=== PATIENT | male | born 1970 | race Caucasian/White ===

== ENCOUNTER 2020-01-15 07:14 | Day surgery (SDC) | payer OTHER ==
[2020-01-14 11:25] VITALS: BMI 34.4
--- NOTE | 2020-01-15 08:04 | HP ---
Satellite [facility] - Chief Complaint Chief Complaint: left knee pain - Past Medical History Allergies/Adverse Reactions: Allergies Allergy/AdvReac Type Severity Reaction Status Date / Time peanut Allergy Severe RESPIRATORY Verified 01/15/20 07:42 DISTRESS, HIVES, SWELLING codeine AdvReac Intermediate Nausea Verified 01/15/20 07:42 - Current Medications Current Medications: Home Medications Medication Instructions Recorded Albuterol Sulfate Inhaler - 1 - 2 inh PO PRN PRN 01/14/20 [Ventolin HFA Inhaler -] Fluticasone Prop 0.05% Nasal 1 - 2 spray NS DAILY 01/14/20 [Flonase -] Omeprazole 80 mg PO DAILY 01/14/20 Semaglutide [Ozempic] 1 mg SQ WEEKLY 01/14/20 Acetaminophen [Tylenol 1,500 mg PO PRN PRN 01/15/20 .Extra-Strength -] Oxycodone HCl/Acetaminophen 1 tab PO Q6H #15 tablet MDD 4 01/15/20 [Percocet 5-325 mg Tablet] Satellite Physical Exam - Physical Examination General Appearance: Well Nourished, Well Developed, Alert & Oriented x3 ENT: Clear Lung: Normal air movement Extremities: Other (left knee- + swelling, + ttp, decr rom, + mcmurrays, nvi) Neurological: Intact, Alert, Oriented Satellite Impression/Plan - Impression/Plan Impression: left knee internal derangement Operative Procedure: left knee arthroscopy Date to be Performed: 01/15/20
[2020-01-15] MEDS ORDERED: LIDOCAINE 1%-EPI 1:100,000 30 ML MDV IJ ONE (08:58)
[2020-01-15] MEDS ORDERED: PROPOFOL 20 ML ONE ×2 (09:03→09:36)
[2020-01-15] MEDS ORDERED: MIDAZOLAM HCL 2 MG/2 ML SINGLE DOSE VIAL ONE (09:03)
[2020-01-15] MEDS ORDERED: DEXAMETHASONE SOD PHOSPHATE 4 MG/1 ML VIAL ONE (09:04)
[2020-01-15] MEDS ORDERED: KETOROLAC TROMETHAMINE 30 MG/1 ML VIAL ONE (09:04)
[2020-01-15] MEDS ORDERED: LIDOCAINE HCL/PF 2% SDV 5ML VIAL ONE (09:04)
[2020-01-15] MEDS ORDERED: ALBUTEROL SO4 HFA INHALER IH ONE (09:16)
[2020-01-15] MEDS ORDERED: LIDOCAINE 1%/EPI 1:100000 (50 ML MULTI DOSE VIAL) NR ONE (09:30)
[2020-01-15] MEDS ORDERED: BUPIVACAINE HCL/PF 0.5% (5 MG/ML) 30 ML VIAL IJ ONE (09:30)
--- NOTE | 2020-01-15 10:25 | OP ---
Operative Note - Note: Operative Date: 01/15/20 ([facility]) Pre-Operative Diagnosis: left knee internal derangement Operation: left knee arthroscopy with debridement chondroplasty Post-Operative Diagnosis: Same as Pre-op Surgeon: Kyle Ritchie Anesthesia: General, Local Specimens Removed: shavings Operative Report Dictated: Yes
[2020-01-15] MEDS ORDERED: ONDANSETRON 4 MG/2 ML VIAL IVPUSH PRN (11:13)
[2020-01-15] MEDS ORDERED: oxyCODONE HCL 5 MG TABLET PO PRN ×2 (11:13)
[2020-01-15] MEDS ORDERED: LACTATED RINGERS SOLUTION 1,000 ML IV SCH (11:15)
[2020-01-15 11:22] VITALS: TEMP 97.8
[2020-01-15] MEDS ORDERED: oxyCODONE HCL 5 MG TABLET PO ONE (11:30)
--- NOTE | 2020-01-15 12:59 | OP ---
DATE OF OPERATION: 01/15/2020 PREOPERATIVE DIAGNOSIS: Internal derangement, left knee. POSTOPERATIVE DIAGNOSIS: Internal derangement, left knee. PROCEDURE: Arthroscopy, left knee with chondroplasty trochlea and lateral femoral condyle. SURGICAL ATTENDING: Kyle Ritchie MD ANESTHESIA: General with LMA. CLOSURES: 4-0 nylon. COMPLICATIONS: None. CONDITION: To recovery room in stable condition. DESCRIPTION OF PROCEDURE: Patient was taken to the operating room on January 15, 2020. General anesthesia with LMA was administered by the anesthesiologist. The left lower extremity was prepped and draped in the usual sterile fashion. The medial and lateral infrapatellar portal sites were infiltrated with 1% Xylocaine with epinephrine. Both ports were then made with a 15 blade followed by a blunt trocar. The trocar was placed in the inferolateral portal and up the suprapatellar pouch. The knee was inflated with a cocktail of 10 mL 1% lidocaine, 10 mL 0.5% Marcaine, and 20 mL of arthroscopic saline. After allowing the anesthetic to sit in the knee and begin to work, the procedure was performed. The scope was visualized to be clean. The medial and lateral gutters were visualized to be clean. The undersurface of the patella was found to be intact. The trochlea itself, however, was found to have a quarter-size grade 4 lesion in the central portion. This was debrided back to smooth and stable articular cartilage using the arthroscopic shaver. With valgus stress on the knee, medial compartment was entered. Medial meniscus was visualized and probed and found to be intact. The medial femoral condyle was run and found to be intact as was the medial tibial plateau. At 90 degrees, the ACL was visualized and probed and found to be intact. In the figure-4 position, the lateral compartment was entered. Lateral meniscus was visualized and probed and found to be intact. The femoral condyle was found to have a linear area of grade 4 changes extending for about a centimeter. Any loose articular cartilage was debrided using a shaver. The rest of the lateral femoral condyle was found to be intact as was the lateral tibial plateau. The knee was irrigated with copious amounts of irrigation. The portal was closed using 4-0 nylon. Prior to closure, 20 mL of 0.5% Marcaine was infused into the knee for postoperative analgesia. A sterile pressure dressing was placed over the knee. Patient awakened from anesthesia and transferred to recovery in stable condition. No complications. Estimated blood loss negligible. KYLE RITCHIE M.D. [id number]
[2020-01-15 13:01] VITALS: BP 130/70; PULSE 80
--- NOTE | 2020-01-18 16:53 | PATH ---
Surgical Pathology Report Patient Name: [facility]. Rec. #: [id number] /Age/Gender: 1970 (Age: 49) / M Account: [id number] Location: [facility] SURGICAL Taken: 01/15/2020 Received: 01/15/2020 Reported: 01/18/2020 Physicians: Kyle Ritchie M.D. Specimen(s) Received LEFT KNEE SHAVINGS Clinical History Tear left knee Final Diagnosis KNEE SHAVINGS, LEFT, ARTHROSCOPY: FRAGMENTS OF CARTILAGE, DENSE FIBROCONNECTIVE TISSUE, ADIPOSE TISSUE, AND REACTIVE SYNOVIUM. Electronically Signed Mary Connell M.D. Gross Description Received in formalin, labeled "left knee shavings," is a 4.0 x 3.8 x 0.3 cm. aggregate of rondon-yellow soft tissue fragments. A artist's representative portion is submitted in one cassette. /01/15/2020 saudi01/15/2020
== END 2020-01-15 12:45 | disposition home or self-care (01) ==
LOC: JASU-SURG 07:14
PROVIDERS: ATTEND Orthopaedic Surgery
PROC: 0SBD4ZZ Excision of Left Knee Joint, Percutaneous Endoscopic Approach (ICD-10-PCS; principal; 2020-01-15 08:45)
DX: M23.92 Unspecified internal derangement of left knee (principal)
CPT/HCPCS: 82962; 88304-TC; 94760

== ENCOUNTER 2022-06-23 10:28 | Inpatient (IN) | payer MEDICARE, OTHER ==
[2022-06-23 10:42] VITALS: BMI 40.3
[2022-06-23] MEDS ORDERED: diazePAM CARPU-JECT 10 MG/2 ML DISP.SYRIN ONE ×4 (10:57→19:30)
[2022-06-23] MEDS ORDERED: diazePAM CARPU-JECT 10 MG/2 ML DISP.SYRIN IVPUSH ONE ×6 (11:30→23:56)
[2022-06-23] MEDS ORDERED: ACETAMINOPHEN 1000 MG/100 ML BAG IVPB ONE (11:51)
[2022-06-23] MEDS ORDERED: SODIUM CHLORIDE 0.9% 500 ML INFUS.BAG IV ONE (11:57)
[2022-06-23 11:58] LABS: MAGNESIUM 1.8 mg/dL (1.8-2.4)
[2022-06-23 12:02] LABS: PHOSPHOROUS 3.2 mg/dL (2.5-4.9)
[2022-06-23 12:13] LABS: BASO % 1.1 % (0-2.0); EOS % 2.2 % (0-4.5); HEMATOCRIT 44.7 % (35.4-49); HEMOGLOBIN 15.7 GM/dL (11.7-16.9); LYMPH % 22.5 % (8-40); MCH 33.5 pg (25.7-33.7); MCHC 35.1 g/dl (32.0-35.9); MEAN CELL VOLUME 95.6 fl (80-96); MEAN PLT VOLUME 8.7 fl (7.5-11.1); MONO % 10.8 % (3.8-10.2); NEUT % 63.4 % (42.8-82.8); PLATELET COUNT 203 10^3/uL (134-434); RBC 4.68 M/mm3 (4.00-5.60); RDW 14.4 % (11.9-15.9); WHITE BLOOD COUNT 6.6 K/mm3 (4.0-10.0)
[2022-06-23 12:23] LABS: LACTIC ACID 2.4 mmol/L (0.4-2.0)
[2022-06-23 12:27] LABS: CALCIUM 8.8 mg/dL (8.5-10.1)
[2022-06-23 12:28] LABS: ALBUMIN 3.4 g/dl (3.4-5.0); BLOOD UREA NITROGEN 13.4 mg/dL (7-18)
[2022-06-23 12:31] LABS: CREATININE 1.2 mg/dL (0.55-1.3)
[2022-06-23 12:32] LABS: TOT PROT 7.2 g/dl (6.4-8.2)
[2022-06-23 12:33] LABS: BILIRUBIN,TOTAL 0.4 mg/dL (0.2-1)
[2022-06-23] MEDS ORDERED: ACETAMINOPHEN INJECTION 100 ML IVPB ONE (12:48)
[2022-06-23] MEDS ORDERED: LORazepam 2 MG/ML SDV VIAL IVPUSH ONE ×2 (13:01→21:33)
[2022-06-23] MEDS ORDERED: THIAMINE HCL 200 MG/2 ML VIAL IVPB ONE (16:37)
[2022-06-23] MEDS ORDERED: THIAMINE HCL 200 MG/2 ML VIAL ONE (16:41)
[2022-06-23] MEDS ORDERED: FUROSEMIDE 40 MG/4 ML INJECTABLE VIAL IVPUSH ONE (17:41)
[2022-06-23 18:35] LABS: PH,URINE 7.5 (5.0-8.0); URINE APPEARANCE CLEAR; URINE BILIRUBIN NEGATIVE (NEGATIVE); URINE COLOR YELLOW; URINE GLUCOSE (UA) NEGATIVE (NEGATIVE); URINE KETONE NEGATIVE (NEGATIVE); URINE LEUK ESTERASE NEGATIVE (NEGATIVE); URINE NITRITE NEGATIVE (NEGATIVE); URINE PROTEIN NEGATIVE (NEGATIVE)
[2022-06-23] MEDS ORDERED: chlordiazePOXIDE HCL 25 MG CAPSULE PO PRN (23:05)
[2022-06-23] MEDS ORDERED: FOLIC ACID INJECTION - 1 MG, THIAMINE HCL 100 MG, MULTIVIT INJECTION ADULT 10 ML in SOD... IVPB ONE (23:07)
[2022-06-24] MEDS: chlordiazePOXIDE HCL 25 MG CAPSULE PO SCH ×5 (00:11→22:01)
[2022-06-24] MEDS: MELATONIN 5 MG TABLETS PO SCH ×2 (00:25→22:01)
[2022-06-24] MEDS ORDERED: ALBUTEROL SO4 HFA INHALER IH PRN (02:09)
[2022-06-24] MEDS: INSULIN SLIDING SCALE (NOVOLOG) 1 VIAL SQ SCH ×4 (06:56→22:11)
[2022-06-24 07:36] LABS: COCAINE, UR NEGATIVE (NEGATIVE); OPIATES, URI NEGATIVE (NEGATIVE)
[2022-06-24 07:37] LABS: METHADONE, UR NEGATIVE (NEGATIVE); PHENCYCLIDINE,URINE NEGATIVE (NEGATIVE); URINE BARBITURATES NEGATIVE (NEGATIVE)
[2022-06-24 07:38] LABS: URINE AMPHETAMINES NEGATIVE (NEGATIVE)
[2022-06-24 07:44] LABS: URINE BENZODIAZEPINES POSITIVE (NEGATIVE)
[2022-06-24 07:51] LABS: BASO % 0.7 % (0-2.0); EOS % 6.3 % (0-4.5); HEMATOCRIT 42.3 % (35.4-49); HEMOGLOBIN 14.7 GM/dL (11.7-16.9); LYMPH % 23.2 % (8-40); MCH 33.5 pg (25.7-33.7); MCHC 34.8 g/dl (32.0-35.9); MEAN CELL VOLUME 96.2 fl (80-96); MEAN PLT VOLUME 8.1 fl (7.5-11.1); MONO % 9.2 % (3.8-10.2); NEUT % 60.6 % (42.8-82.8); PLATELET COUNT 165 10^3/uL (134-434); RDW 14.3 % (11.9-15.9); WHITE BLOOD COUNT 7.1 K/mm3 (4.0-10.0)
[2022-06-24 08:22] LABS: CALCIUM 8.4 mg/dL (8.5-10.1)
[2022-06-24 08:25] LABS: BLOOD UREA NITROGEN 14.9 mg/dL (7-18); CREATININE 1.2 mg/dL (0.55-1.3)
[2022-06-24 08:27] LABS: TOT PROT 6.2 g/dl (6.4-8.2)
[2022-06-24 08:28] LABS: ALBUMIN 3.1 g/dl (3.4-5.0); PHOSPHOROUS 4.2 mg/dL (2.5-4.9)
[2022-06-24 08:30] LABS: BILIRUBIN,TOTAL 0.6 mg/dL (0.2-1)
[2022-06-24] MEDS ORDERED: ESCITALOPRAM OXALATE 10 MG TABLET ONE (09:42)
[2022-06-24] MEDS: FLUTICASONE/UMECLIDIN/VILANTER(200-62.5-25 TRELEGY ELLIPTA) INAHLER IH SCH (10:00)
[2022-06-24] MEDS ORDERED: THIAMINE HCL 200 MG/2 ML VIAL IVPB SCH (10:00)
[2022-06-24] MEDS ORDERED: ENOXAPARIN NA (PORCINE) 40 MG/0.4 ML DISP.SYRIN SQ SCH ×2 (10:00)
[2022-06-24] MEDS: LIDOCAINE 5% TOPICAL PATCH TP SCH (10:19)
[2022-06-24] MEDS: FAMOTIDINE 40 MG TABLET PO SCH (10:20)
[2022-06-24] MEDS: ESCITALOPRAM OXALATE 20 MG TABLET PO SCH (10:20)
[2022-06-24] MEDS: THIAMINE HCL 100 MG TABLET (FP) PO SCH (10:20)
[2022-06-24] MEDS: FOLIC ACID 1 MG TABLET (FP) PO SCH (10:20)
[2022-06-24] MEDS ORDERED: LORazepam 2 MG/ML SDV VIAL IVPUSH ONE (10:54)
[2022-06-24] MEDS ORDERED: LORazepam 2 MG/ML SDV VIAL IVPUSH PRN (12:31)
[2022-06-24] MEDS: LIDOCAINE PATCH REMOVAL MC SCH (22:02)
[2022-06-25] MEDS ORDERED: chlordiazePOXIDE HCL 25 MG CAPSULE PO SCH ×2 (05:00→17:00)
[2022-06-25] MEDS: chlordiazePOXIDE HCL 25 MG CAPSULE PO SCH ×4 (05:09→22:12)
[2022-06-25] MEDS: INSULIN SLIDING SCALE (NOVOLOG) 1 VIAL SQ SCH ×4 (06:09→21:14)
[2022-06-25] MEDS ORDERED: ESCITALOPRAM OXALATE 10 MG TABLET ONE (09:19)
[2022-06-25 10:06] LABS: BASO % 0.6 % (0-2.0); EOS % 6.4 % (0-4.5); HEMATOCRIT 40.7 % (35.4-49); HEMOGLOBIN 14.1 GM/dL (11.7-16.9); LYMPH % 20.6 % (8-40); MCHC 34.7 g/dl (32.0-35.9); MEAN CELL VOLUME 95.1 fl (80-96); MEAN PLT VOLUME 8.7 fl (7.5-11.1); MONO % 7.6 % (3.8-10.2); NEUT % 64.8 % (42.8-82.8); PLATELET COUNT 160 10^3/uL (134-434); RBC 4.28 M/mm3 (4.00-5.60); RDW 13.7 % (11.9-15.9); WHITE BLOOD COUNT 7.3 K/mm3 (4.0-10.0)
[2022-06-25] MEDS: LIDOCAINE 5% TOPICAL PATCH TP SCH (10:29)
[2022-06-25 10:30] LABS: CALCIUM 8.8 mg/dL (8.5-10.1)
[2022-06-25] MEDS: FOLIC ACID 1 MG TABLET (FP) PO SCH (10:30)
[2022-06-25] MEDS: THIAMINE HCL 100 MG TABLET (FP) PO SCH (10:30)
[2022-06-25] MEDS: ESCITALOPRAM OXALATE 20 MG TABLET PO SCH (10:30)
[2022-06-25 10:31] LABS: BLOOD UREA NITROGEN 8.7 mg/dL (7-18)
[2022-06-25] MEDS: FLUTICASONE/UMECLIDIN/VILANTER(200-62.5-25 TRELEGY ELLIPTA) INAHLER IH SCH (10:31)
[2022-06-25] MEDS: FAMOTIDINE 40 MG TABLET PO SCH (10:31)
[2022-06-25 10:34] LABS: CREATININE 0.9 mg/dL (0.55-1.3)
[2022-06-25 10:36] LABS: TOT PROT 6.2 g/dl (6.4-8.2)
[2022-06-25 10:54] LABS: BILIRUBIN,TOTAL 0.8 mg/dL (0.2-1)
[2022-06-25] MEDS ORDERED: chlordiazePOXIDE HCL 25 MG CAPSULE PO PRN (12:36)
[2022-06-25] MEDS ORDERED: levETIRAcetam 500 MG TABLET (FP) PO ONE (13:41)
[2022-06-25] MEDS: LORazepam 2 MG/ML SDV VIAL IVPUSH PRN (13:49)
[2022-06-25] MEDS: chlordiazePOXIDE HCL 25 MG CAPSULE PO PRN (15:04)
[2022-06-25] MEDS: ACETAMINOPHEN 325 MG TABLET (FP) PO PRN (17:34)
[2022-06-25] MEDS ORDERED: chlordiazePOXIDE 5 MG CAPSULE PO SCH (18:00)
[2022-06-25] MEDS ORDERED: KETOROLAC TROMETHAMINE 15 MG/ML VIAL IVPUSH ONE (20:24)
[2022-06-25] MEDS: MELATONIN 5 MG TABLETS PO SCH (21:13)
[2022-06-25] MEDS: levETIRAcetam 500 MG TABLET (FP) PO SCH (21:13)
[2022-06-25] MEDS: LIDOCAINE PATCH REMOVAL MC SCH (21:16)
[2022-06-25] MEDS: THIAMINE HCL 200 MG/2 ML VIAL IVPB SCH (21:16)
[2022-06-26] MEDS ORDERED: chlordiazePOXIDE HCL 10 MG CAPSULE PO PRN
[2022-06-26] MEDS: THIAMINE HCL 200 MG/2 ML VIAL IVPB SCH ×4 (01:25→21:24)
[2022-06-26] MEDS ORDERED: chlordiazePOXIDE HCL 10 MG CAPSULE PO SCH (05:00)
[2022-06-26] MEDS ORDERED: chlordiazePOXIDE HCL 25 MG CAPSULE PO SCH ×3 (05:00→17:00)
[2022-06-26] MEDS: chlordiazePOXIDE HCL 25 MG CAPSULE PO SCH ×2 (05:34→11:17)
[2022-06-26] MEDS: INSULIN SLIDING SCALE (NOVOLOG) 1 VIAL SQ SCH ×4 (06:26→21:24)
[2022-06-26] MEDS: LORazepam 2 MG/ML SDV VIAL IVPUSH PRN (09:23)
[2022-06-26] MEDS ORDERED: ESCITALOPRAM OXALATE 10 MG TABLET ONE (09:31)
[2022-06-26] MEDS: LIDOCAINE 5% TOPICAL PATCH TP SCH (10:00)
[2022-06-26] MEDS: FAMOTIDINE 40 MG TABLET PO SCH (10:01)
[2022-06-26] MEDS: ESCITALOPRAM OXALATE 20 MG TABLET PO SCH (10:01)
[2022-06-26] MEDS: levETIRAcetam 500 MG TABLET (FP) PO SCH ×2 (10:03→21:24)
[2022-06-26] MEDS: FOLIC ACID 1 MG TABLET (FP) PO SCH (10:06)
[2022-06-26 10:12] LABS: HEMATOCRIT 42.2 % (35.4-49); HEMOGLOBIN 14.5 GM/dL (11.7-16.9); MCH 33.1 pg (25.7-33.7); MCHC 34.3 g/dl (32.0-35.9); MEAN CELL VOLUME 96.4 fl (80-96); MEAN PLT VOLUME 8.9 fl (7.5-11.1); PLATELET COUNT 171 10^3/uL (134-434); RBC 4.37 M/mm3 (4.00-5.60); RDW 13.7 % (11.9-15.9); WHITE BLOOD COUNT 7.5 K/mm3 (4.0-10.0)
[2022-06-26] MEDS: FLUTICASONE/UMECLIDIN/VILANTER(200-62.5-25 TRELEGY ELLIPTA) INAHLER IH SCH (10:35)
[2022-06-26 10:41] LABS: BLOOD UREA NITROGEN 12.8 mg/dL (7-18); CALCIUM 8.9 mg/dL (8.5-10.1)
[2022-06-26 10:45] LABS: BILIRUBIN,TOTAL 0.9 mg/dL (0.2-1); CREATININE 1.1 mg/dL (0.55-1.3)
[2022-06-26 10:47] LABS: TOT PROT 6.4 g/dl (6.4-8.2)
[2022-06-26] MEDS ORDERED: levETIRAcetam 500 MG/5 ML INJECTION VIAL IVPB ONE (11:30)
[2022-06-26 14:23] LABS: MAGNESIUM 2.1 mg/dL (1.8-2.4)
[2022-06-26 14:25] LABS: PHOSPHOROUS 2.4 mg/dL (2.5-4.9)
[2022-06-26] MEDS: chlordiazePOXIDE HCL 25 MG CAPSULE PO PRN (15:43)
[2022-06-26] MEDS ORDERED: NAPH,MB-DB/K PH,MBDB POWDER PACKET PO ONE (16:13)
[2022-06-26] MEDS: CHLORDIAZEPOXIDE PO SCH ×2 (17:35→22:31)
[2022-06-26] MEDS: ACETAMINOPHEN 325 MG TABLET (FP) PO PRN (17:55)
[2022-06-26] MEDS: LIDOCAINE PATCH REMOVAL MC SCH (21:24)
[2022-06-26] MEDS: MELATONIN 5 MG TABLETS PO SCH (21:24)
[2022-06-26] MEDS: QUEtiapine FUMARATE 25 MG TABLET PO SCH (21:25)
[2022-06-27] MEDS ORDERED: chlordiazePOXIDE HCL 10 MG CAPSULE PO PRN
[2022-06-27] MEDS: THIAMINE HCL 200 MG/2 ML VIAL IVPB SCH ×4 (02:10→22:53)
[2022-06-27] MEDS ORDERED: chlordiazePOXIDE HCL 25 MG CAPSULE PO SCH ×3 (05:00→17:00)
[2022-06-27] MEDS ORDERED: chlordiazePOXIDE HCL 10 MG CAPSULE PO SCH ×2 (05:00)
[2022-06-27] MEDS ORDERED: chlordiazePOXIDE HCL 25 MG CAPSULE ONE (05:51)
[2022-06-27] MEDS ORDERED: chlordiazePOXIDE 5 MG CAPSULE ONE (05:51)
[2022-06-27] MEDS: CHLORDIAZEPOXIDE PO SCH ×4 (06:10→22:54)
[2022-06-27] MEDS: INSULIN SLIDING SCALE (NOVOLOG) 1 VIAL SQ SCH ×4 (06:22→21:26)
[2022-06-27 08:23] LABS: EOS % 6.6 % (0-4.5); HEMATOCRIT 42.3 % (35.4-49); HEMOGLOBIN 14.5 GM/dL (11.7-16.9); LYMPH % 23.3 % (8-40); MCH 33.3 pg (25.7-33.7); MCHC 34.2 g/dl (32.0-35.9); MEAN CELL VOLUME 97.3 fl (80-96); MEAN PLT VOLUME 8.9 fl (7.5-11.1); MONO % 7.6 % (3.8-10.2); NEUT % 61.5 % (42.8-82.8); PLATELET COUNT 166 10^3/uL (134-434); RBC 4.35 M/mm3 (4.00-5.60)
[2022-06-27 08:55] LABS: BLOOD UREA NITROGEN 10.6 mg/dL (7-18); CALCIUM 8.8 mg/dL (8.5-10.1)
[2022-06-27 08:59] LABS: BILIRUBIN,TOTAL 0.4 mg/dL (0.2-1); TOT PROT 6.4 g/dl (6.4-8.2)
[2022-06-27] MEDS ORDERED: ESCITALOPRAM OXALATE 10 MG TABLET ONE (09:19)
[2022-06-27] MEDS: LIDOCAINE 5% TOPICAL PATCH TP SCH (09:57)
[2022-06-27] MEDS: FAMOTIDINE 40 MG TABLET PO SCH (09:58)
[2022-06-27] MEDS: levETIRAcetam 500 MG TABLET (FP) PO SCH ×2 (09:58→21:30)
[2022-06-27] MEDS: ESCITALOPRAM OXALATE 20 MG TABLET PO SCH (09:58)
[2022-06-27] MEDS: FOLIC ACID 1 MG TABLET (FP) PO SCH (09:58)
[2022-06-27] MEDS: FLUTICASONE/UMECLIDIN/VILANTER(200-62.5-25 TRELEGY ELLIPTA) INAHLER IH SCH (10:22)
[2022-06-27 11:19] LABS: PHOSPHOROUS 3.9 mg/dL (2.5-4.9)
[2022-06-27] MEDS ORDERED: MAG HYDROX/AL HYDROX/SIMETH 30 ML UNIT-DOSE CUP PO ONE (20:31)
[2022-06-27] MEDS: QUEtiapine FUMARATE 25 MG TABLET PO SCH (21:30)
[2022-06-27] MEDS ORDERED: ATORVASTATIN CA 20 MG TABLET (FP) PO SCH (22:00)
[2022-06-27] MEDS: LIDOCAINE PATCH REMOVAL MC SCH (22:53)
[2022-06-27] MEDS: MELATONIN 5 MG TABLETS PO SCH (22:56)
[2022-06-27] MEDS ORDERED: IBUPROFEN 600 MG TABLET (FP) PO PRN (23:10)
[2022-06-28] MEDS: THIAMINE HCL 200 MG/2 ML VIAL IVPB SCH ×2 (02:58→10:24)
[2022-06-28] MEDS ORDERED: chlordiazePOXIDE HCL 10 MG CAPSULE PO ONE (05:00)
[2022-06-28] MEDS ORDERED: chlordiazePOXIDE HCL 10 MG CAPSULE PO SCH ×2 (05:00)
[2022-06-28] MEDS: CHLORDIAZEPOXIDE PO SCH ×3 (06:41→22:33)
[2022-06-28] MEDS: INSULIN SLIDING SCALE (NOVOLOG) 1 VIAL SQ SCH ×2 (06:45→11:53)
[2022-06-28 08:38] LABS: HEMATOCRIT 42.4 % (35.4-49); HEMOGLOBIN 14.9 GM/dL (11.7-16.9); MCH 33.8 pg (25.7-33.7); MCHC 35.2 g/dl (32.0-35.9); MEAN PLT VOLUME 8.3 fl (7.5-11.1); PLATELET COUNT 170 10^3/uL (134-434); RBC 4.41 M/mm3 (4.00-5.60); RDW 14.2 % (11.9-15.9); WHITE BLOOD COUNT 7.3 K/mm3 (4.0-10.0)
[2022-06-28 09:21] LABS: BILIRUBIN,TOTAL 0.2 mg/dL (0.2-1); TOT PROT 6.7 g/dl (6.4-8.2)
[2022-06-28 09:23] LABS: BLOOD UREA NITROGEN 11.8 mg/dL (7-18); PHOSPHOROUS 3.2 mg/dL (2.5-4.9)
[2022-06-28 09:25] LABS: ALBUMIN 3.1 g/dl (3.4-5.0); MAGNESIUM 2.4 mg/dL (1.8-2.4)
[2022-06-28 09:31] LABS: CALCIUM 8.6 mg/dL (8.5-10.1)
[2022-06-28] MEDS ORDERED: ESCITALOPRAM OXALATE 10 MG TABLET ONE (09:57)
[2022-06-28] MEDS: FAMOTIDINE 40 MG TABLET PO SCH (10:02)
[2022-06-28] MEDS: ESCITALOPRAM OXALATE 20 MG TABLET PO SCH (10:02)
[2022-06-28] MEDS: levETIRAcetam 500 MG TABLET (FP) PO SCH (10:02)
[2022-06-28] MEDS: FOLIC ACID 1 MG TABLET (FP) PO SCH (10:03)
[2022-06-28] MEDS: FLUTICASONE/UMECLIDIN/VILANTER(200-62.5-25 TRELEGY ELLIPTA) INAHLER IH SCH (10:24)
[2022-06-28] MEDS: LIDOCAINE 5% TOPICAL PATCH TP SCH (10:24)
[2022-06-28] MEDS ORDERED: LORazepam 2 MG/ML SDV VIAL IVPUSH ONE ×2 (14:58→15:01)
[2022-06-28] MEDS ORDERED: diazePAM CARPU-JECT 10 MG/2 ML DISP.SYRIN IVPUSH PRN (15:09)
[2022-06-28] MEDS ORDERED: levETIRAcetam 500 MG/5 ML INJECTION VIAL IVPB ONE (15:13)
[2022-06-28] MEDS ORDERED: chlordiazePOXIDE HCL 10 MG CAPSULE PO PRN ×3 (15:30→17:01)
[2022-06-28] MEDS ORDERED: CHLORDIAZEPOXIDE PO SCH (17:00)
[2022-06-28] MEDS ORDERED: chlordiazePOXIDE HCL 25 MG CAPSULE PO SCH (17:00)
[2022-06-28] MEDS ORDERED: IBUPROFEN 600 MG TABLET (FP) PO PRN (17:01)
[2022-06-28] MEDS ORDERED: ALBUTEROL SO4 HFA INHALER IH PRN (17:01)
[2022-06-28] MEDS ORDERED: ACETAMINOPHEN 325 MG TABLET (FP) PO PRN (17:01)
[2022-06-28] MEDS ORDERED: NAPROXEN 250 MG TABLET PO ONE (18:28)
[2022-06-28] MEDS ORDERED: ACETAMINOPHEN 500 MG TABLET (FP) PO PRN (18:55)
[2022-06-28] MEDS ORDERED: THIAMINE HCL 200 MG/2 ML VIAL IVPB SCH (20:00)
[2022-06-28 20:08] LABS: INR 0.96 (0.83-1.09)
[2022-06-28 20:11] LABS: ACTIVATED PTT 27.9 SECONDS (25.2-36.5)
[2022-06-28 20:18] LABS: ANISOCYTOSIS 1+; MACROCYTOSIS 1+
[2022-06-28 20:33] LABS: LDH 169 U/L (87-246)
[2022-06-28] MEDS: morphine SULFATE 4 MG/ML VIAL IVPUSH PRN (20:51)
[2022-06-28] MEDS: MUPIROCIN 2% TOPICAL OINTMENT FOR DECOLONIZATION NS SCH (21:56)
[2022-06-28] MEDS: DOCUSATE SODIUM 100 MG CAPSULE (FP) PO SCH (21:56)
[2022-06-28] MEDS: LIDOCAINE PATCH REMOVAL MC SCH ×2 (21:57)
[2022-06-28] MEDS: levETIRAcetam 500 MG/5 ML INJECTION VIAL IVPB SCH (21:57)
[2022-06-28] MEDS: CHLORHEXIDINE GLUCONATE 4% CLEANSER FOR DECOLONIZATION TP SCH (21:57)
[2022-06-28] MEDS: ATORVASTATIN CA 20 MG TABLET (FP) PO SCH (21:58)
[2022-06-28] MEDS: QUEtiapine FUMARATE 25 MG TABLET PO SCH (21:59)
[2022-06-28] MEDS ORDERED: POLYETHYLENE GLYCOL (HEALTHYLAX) 3350 17 GM PACKET PO ONE (22:00)
[2022-06-28] MEDS ORDERED: levETIRAcetam 500 MG/5 ML INJECTION VIAL IVPB SCH (22:00)
[2022-06-28] MEDS: MELATONIN 5 MG TABLETS PO SCH (22:04)
[2022-06-29] MEDS ORDERED: chlordiazePOXIDE HCL 10 MG CAPSULE PO SCH ×2 (05:00→17:00)
[2022-06-29] MEDS ORDERED: chlordiazePOXIDE HCL 10 MG CAPSULE PO ONE (05:00)
[2022-06-29] MEDS: CHLORDIAZEPOXIDE PO SCH ×2 (05:08→11:00)
[2022-06-29] MEDS: THIAMINE HCL 200 MG/2 ML VIAL IVPB SCH (08:00)
[2022-06-29] MEDS: chlordiazePOXIDE HCL 25 MG CAPSULE PO SCH (08:05)
[2022-06-29] MEDS: PATIENT'S OWN MEDICATION (NON-FORMULARY) (Sildenafil Citrate [Sildenafil Citrate] 20 MG Ta PO SCH (08:06)
[2022-06-29] MEDS: ESCITALOPRAM OXALATE 20 MG TABLET PO SCH (10:09)
[2022-06-29] MEDS: MUPIROCIN 2% TOPICAL OINTMENT FOR DECOLONIZATION NS SCH ×2 (10:09→21:25)
[2022-06-29] MEDS: FAMOTIDINE 20 MG TABLET PO SCH (10:09)
[2022-06-29] MEDS: FOLIC ACID 1 MG TABLET (FP) PO SCH (10:10)
[2022-06-29] MEDS: FLUTICASONE/UMECLIDIN/VILANTER(200-62.5-25 TRELEGY ELLIPTA) INAHLER IH SCH (10:11)
[2022-06-29] MEDS: LIDOCAINE 5% TOPICAL PATCH TP SCH (10:11)
[2022-06-29] MEDS: levETIRAcetam 500 MG/5 ML INJECTION VIAL IVPB SCH ×2 (10:11→21:25)
[2022-06-29 13:29] LABS: BASO % 0.7 % (0-2.0); EOS % 6.9 % (0-4.5); HEMATOCRIT 42.6 % (35.4-49); HEMOGLOBIN 14.7 GM/dL (11.7-16.9); LYMPH % 17.2 % (8-40); MCHC 34.6 g/dl (32.0-35.9); MEAN CELL VOLUME 95.4 fl (80-96); MEAN PLT VOLUME 8.5 fl (7.5-11.1); MONO % 10.1 % (3.8-10.2); NEUT % 65.1 % (42.8-82.8); PLATELET COUNT 189 10^3/uL (134-434); RBC 4.46 M/mm3 (4.00-5.60); WHITE BLOOD COUNT 7.6 K/mm3 (4.0-10.0)
[2022-06-29 13:51] LABS: CALCIUM 8.6 mg/dL (8.5-10.1)
[2022-06-29 13:52] LABS: BLOOD UREA NITROGEN 9.7 mg/dL (7-18); MAGNESIUM 2.2 mg/dL (1.8-2.4)
[2022-06-29 13:55] LABS: CREATININE 1.1 mg/dL (0.55-1.3); PHOSPHOROUS 3.4 mg/dL (2.5-4.9)
[2022-06-29 13:56] LABS: BILIRUBIN,TOTAL 0.4 mg/dL (0.2-1); TOT PROT 6.5 g/dl (6.4-8.2)
[2022-06-29] MEDS: chlordiazePOXIDE HCL 10 MG CAPSULE PO SCH ×2 (19:43→22:50)
[2022-06-29] MEDS: NICOTINE 21 MG/24 HOURS TOPICAL PATCH TD SCH (20:44)
[2022-06-29] MEDS: QUEtiapine FUMARATE 25 MG TABLET PO SCH (21:24)
[2022-06-29] MEDS: MELATONIN 5 MG TABLETS PO SCH (21:24)
[2022-06-29] MEDS: DOCUSATE SODIUM 100 MG CAPSULE (FP) PO SCH (21:24)
[2022-06-29] MEDS: LIDOCAINE PATCH REMOVAL MC SCH ×2 (21:25)
[2022-06-29] MEDS: ATORVASTATIN CA 20 MG TABLET (FP) PO SCH (21:25)
[2022-06-29] MEDS: CHLORHEXIDINE GLUCONATE 4% CLEANSER FOR DECOLONIZATION TP SCH (21:25)
[2022-06-29] MEDS: INSULIN (NOVOLOG) ASPART 100 UNITS/ML 10ML VIAL SQ SCH (21:28)
[2022-06-29] MEDS: morphine SULFATE 4 MG/ML VIAL IVPUSH PRN (21:35)
[2022-06-30] MEDS ORDERED: chlordiazePOXIDE HCL 10 MG CAPSULE PO ONE (05:00)
[2022-06-30] MEDS: chlordiazePOXIDE HCL 10 MG CAPSULE PO SCH ×2 (05:21→11:00)
[2022-06-30] MEDS: INSULIN (NOVOLOG) ASPART 100 UNITS/ML 10ML VIAL SQ SCH ×4 (06:27→22:01)
[2022-06-30 08:02] LABS: BASO % 0.6 % (0-2.0); EOS % 5.5 % (0-4.5); HEMATOCRIT 42.6 % (35.4-49); HEMOGLOBIN 14.7 GM/dL (11.7-16.9); LYMPH % 24.8 % (8-40); MCH 33.2 pg (25.7-33.7); MCHC 34.4 g/dl (32.0-35.9); MEAN CELL VOLUME 96.4 fl (80-96); MEAN PLT VOLUME 8.5 fl (7.5-11.1); MONO % 11.5 % (3.8-10.2); NEUT % 57.6 % (42.8-82.8); PLATELET COUNT 202 10^3/uL (134-434); RBC 4.43 M/mm3 (4.00-5.60); WHITE BLOOD COUNT 7.2 K/mm3 (4.0-10.0)
[2022-06-30 08:17] LABS: CALCIUM 8.9 mg/dL (8.5-10.1)
[2022-06-30 08:18] LABS: ALBUMIN 3.1 g/dl (3.4-5.0); BLOOD UREA NITROGEN 11.7 mg/dL (7-18); MAGNESIUM 2.2 mg/dL (1.8-2.4)
[2022-06-30 08:21] LABS: CREATININE 1.2 mg/dL (0.55-1.3); PHOSPHOROUS 4.4 mg/dL (2.5-4.9)
[2022-06-30 08:22] LABS: BILIRUBIN,TOTAL 0.3 mg/dL (0.2-1); TOT PROT 6.8 g/dl (6.4-8.2)
[2022-06-30] MEDS: MUPIROCIN 2% TOPICAL OINTMENT FOR DECOLONIZATION NS SCH ×2 (10:58→21:58)
[2022-06-30] MEDS: FOLIC ACID 1 MG TABLET (FP) PO SCH (10:58)
[2022-06-30] MEDS: levETIRAcetam 500 MG/5 ML INJECTION VIAL IVPB SCH (10:58)
[2022-06-30] MEDS: ESCITALOPRAM OXALATE 20 MG TABLET PO SCH (10:58)
[2022-06-30] MEDS: LIDOCAINE 5% TOPICAL PATCH TP SCH (10:58)
[2022-06-30] MEDS: FLUTICASONE/UMECLIDIN/VILANTER(200-62.5-25 TRELEGY ELLIPTA) INAHLER IH SCH (10:59)
[2022-06-30] MEDS: NICOTINE 21 MG/24 HOURS TOPICAL PATCH TD SCH (10:59)
[2022-06-30] MEDS: FAMOTIDINE 20 MG TABLET PO SCH (10:59)
[2022-06-30] MEDS: morphine SULFATE 4 MG/ML VIAL IVPUSH PRN ×2 (13:36→22:05)
[2022-06-30] MEDS: CHLORHEXIDINE GLUCONATE 4% CLEANSER FOR DECOLONIZATION TP SCH (21:58)
[2022-06-30] MEDS: LIDOCAINE PATCH REMOVAL MC SCH ×2 (21:58)
[2022-06-30] MEDS: DOCUSATE SODIUM 100 MG CAPSULE (FP) PO SCH (21:58)
[2022-06-30] MEDS: MELATONIN 5 MG TABLETS PO SCH (21:58)
[2022-06-30] MEDS: ATORVASTATIN CA 20 MG TABLET (FP) PO SCH (21:58)
[2022-06-30] MEDS: levETIRAcetam 500 MG TABLET (FP) PO SCH (21:58)
[2022-06-30] MEDS: QUEtiapine FUMARATE 25 MG TABLET PO SCH (21:58)
[2022-06-30] MEDS ORDERED: morphine SULFATE 4 MG/ML VIAL IVPUSH PRN (23:18)
[2022-06-30] MEDS ORDERED: LIDOCAINE PATCH REMOVAL MC SCH (23:18)
[2022-06-30] MEDS ORDERED: ACETAMINOPHEN 500 MG TABLET (FP) PO PRN (23:18)
[2022-06-30] MEDS ORDERED: diazePAM CARPU-JECT 10 MG/2 ML DISP.SYRIN IVPUSH PRN (23:18)
[2022-06-30] MEDS ORDERED: ALBUTEROL SO4 HFA INHALER IH PRN (23:18)
[2022-06-30 23:19] VITALS: RESP 18
[2022-07-01] MEDS: INSULIN (NOVOLOG) ASPART 100 UNITS/ML 10ML VIAL SQ SCH ×3 (06:02→16:30)
[2022-07-01] MEDS ORDERED: FLUTICASONE/UMECLIDIN/VILANTER(200-62.5-25 TRELEGY ELLIPTA) INAHLER IH SCH (10:00)
[2022-07-01] MEDS ORDERED: FOLIC ACID 1 MG TABLET (FP) PO SCH (10:00)
[2022-07-01] MEDS ORDERED: NICOTINE 21 MG/24 HOURS TOPICAL PATCH TD SCH (10:00)
[2022-07-01] MEDS ORDERED: MUPIROCIN 2% TOPICAL OINTMENT FOR DECOLONIZATION NS SCH (10:00)
[2022-07-01] MEDS ORDERED: ESCITALOPRAM OXALATE 20 MG TABLET PO SCH (10:00)
[2022-07-01] MEDS ORDERED: LIDOCAINE 5% TOPICAL PATCH TP SCH (10:00)
[2022-07-01] MEDS ORDERED: FAMOTIDINE 20 MG TABLET PO SCH (10:00)
[2022-07-01 11:20] LABS: EOS % 8.7 % (0-4.5); HEMOGLOBIN 13.9 GM/dL (11.7-16.9); LYMPH % 21.6 % (8-40); MCH 33.1 pg (25.7-33.7); MEAN CELL VOLUME 97.2 fl (80-96); MEAN PLT VOLUME 8.4 fl (7.5-11.1); MONO % 12.2 % (3.8-10.2); NEUT % 56.5 % (42.8-82.8); PLATELET COUNT 209 10^3/uL (134-434); RBC 4.22 M/mm3 (4.00-5.60); RDW 14.1 % (11.9-15.9); WHITE BLOOD COUNT 6.4 K/mm3 (4.0-10.0)
[2022-07-01] MEDS: levETIRAcetam 500 MG TABLET (FP) PO SCH (11:28)
[2022-07-01 11:39] LABS: CALCIUM 8.5 mg/dL (8.5-10.1)
[2022-07-01 11:40] LABS: ALBUMIN 2.8 g/dl (3.4-5.0); BLOOD UREA NITROGEN 10.5 mg/dL (7-18); MAGNESIUM 2.2 mg/dL (1.8-2.4)
[2022-07-01 11:43] LABS: CREATININE 1.1 mg/dL (0.55-1.3); PHOSPHOROUS 3.8 mg/dL (2.5-4.9)
[2022-07-01 11:44] LABS: BILIRUBIN,TOTAL 0.3 mg/dL (0.2-1); TOT PROT 6.2 g/dl (6.4-8.2)
[2022-07-01 14:20] VITALS: BP 121/76; PULSE 74; TEMP 97.8
[2022-07-01] MEDS ORDERED: CHLORHEXIDINE GLUCONATE 4% CLEANSER FOR DECOLONIZATION TP SCH (22:00)
[2022-07-01] MEDS ORDERED: DOCUSATE SODIUM 100 MG CAPSULE (FP) PO SCH (22:00)
[2022-07-01] MEDS ORDERED: QUEtiapine FUMARATE 25 MG TABLET PO SCH (22:00)
[2022-07-01] MEDS ORDERED: ATORVASTATIN CA 20 MG TABLET (FP) PO SCH (22:00)
[2022-07-01] MEDS ORDERED: LIDOCAINE PATCH REMOVAL MC SCH ×2 (22:00)
[2022-07-01] MEDS ORDERED: MELATONIN 5 MG TABLETS PO SCH (22:00)
[2022-07-02 00:07] LABS: THYROID STIM IMMUNOGLOBULIN <0.10 IU/L (0.00-0.55)
== END 2022-07-01 17:00 | disposition left against medical advice (07) | DRG 770 ==
LOC: JER 10:28 → JERBED 17:01 → J4S 23:24 → JICU 06-28 15:21 → J5S 06-30 23:26
PROVIDERS: ADMIT Internal Medicine; ATTEND Internal Medicine
PROC: HZ2ZZZZ Detoxification Services for Substance Abuse Treatment (ICD-10-PCS; principal; 2022-06-23)
DX: F10.239 Alcohol dependence with withdrawal, unspecified (principal); R56.9 Unspecified convulsions; E66.9 Obesity, unspecified; Z68.41 Body mass index [BMI] 40.0-44.9, adult; G47.33 Obstructive sleep apnea (adult) (pediatric); K21.9 Gastro-esophageal reflux disease without esophagitis; I25.10 Atherosclerotic heart disease of native coronary artery without angina pectoris; K76.0 Fatty (change of) liver, not elsewhere classified; R16.0 Hepatomegaly, not elsewhere classified; E11.9 Type 2 diabetes mellitus without complications; R25.1 Tremor, unspecified; K62.5 Hemorrhage of anus and rectum; Z95.5 Presence of coronary angioplasty implant and graft
CPT/HCPCS: 36415; 70450-TC; 70551-TC; 70552-TC; 71045-TC-FY; 71250-TC; 72125-TC; 74177-TC; 80053; 80061; 80177; 80307; 81003; 82103; 82140; 82272; 82550; 82553; 82607; 82746; 82784; 82962; 83036; 83605; 83615; 83690; 83735; 83883; 84100; 84155; 84165; 84439; 84443; 84445; 84484; 85025; 85027; 85384; 85610; 85730; 86157; 86376; 86800; 86850; 86880; 86900; 86901; 87086; 93005; 93010; 94660; 99285-25; A9579; C9803-CS; Q9967; U0003; U0005

== ENCOUNTER 2022-12-19 04:05 | Day surgery (SDC) | payer OTHER ==
[2022-12-17 09:31] VITALS: BMI 38.7
[2022-12-19] MEDS ORDERED: ROPIVACAINE HCL 0.5% 30ML VIAL ONE (07:55)
[2022-12-19] MEDS ORDERED: PHENYLEPHRINE HCL 10 MG/1 ML SINGLE DOSE VIAL ONE (08:38)
[2022-12-19] MEDS ORDERED: ALBUTEROL SO4 HFA INHALER IH ONE (08:38)
[2022-12-19] MEDS ORDERED: LIDOCAINE HCL 4% TOPICAL SOLN (50 ML/BOTTLE) ONE (08:40)
[2022-12-19] MEDS ORDERED: PROPOFOL 20 ML ONE (08:40)
[2022-12-19] MEDS ORDERED: LIDOCAINE HCL/PF 2% SDV 5ML VIAL ONE (08:41)
[2022-12-19] MEDS ORDERED: MIDAZOLAM HCL 2 MG/2 ML SINGLE DOSE VIAL ONE ×2 (08:57→09:08)
[2022-12-19] MEDS ORDERED: ROCURONIUM BROMIDE 50 MG/5 ML SYRINGE ONE (09:25)
[2022-12-19] MEDS ORDERED: ceFAZolin SODIUM 1 GM VIAL IVPB ONE (09:29)
[2022-12-19] MEDS ORDERED: NEOSTIGMINE METHYLSULFATE 0.5 MG/1 ML - 10 ML MDV ONE ×2 (10:14→10:17)
[2022-12-19] MEDS ORDERED: GLYCOPYRROLATE 0.2 MG/1 ML VIAL ONE (10:26)
[2022-12-19] MEDS ORDERED: IPRATROPIUM BR 0.02% 0.5 MG/2.5 ML VIAL.NEB. NEB ONE (10:33)
[2022-12-19] MEDS ORDERED: ALBUTEROL SO4 0.083% IH SOL 2.5 MG/3 ML VIAL.NEB. NEB ONE (10:33)
[2022-12-19] MEDS ORDERED: ALBUTEROL SO4 2.5/IPRATROPIUM 0.5 INH SOL 3 ML VIAL.NEB. NEB ONE (10:34)
[2022-12-19] MEDS ORDERED: oxyCODONE HCL 5 MG TABLET PO PRN (10:34)
[2022-12-19] MEDS ORDERED: ONDANSETRON 4 MG/2 ML VIAL IVPUSH PRN (10:34)
[2022-12-19] MEDS ORDERED: LACTATED RINGERS SOLUTION 1,000 ML IV SCH (10:45)
[2022-12-19] MEDS ORDERED: methylPREDNISolone NA SUCC 125 MG/2 ML VIAL ONE (10:59)
[2022-12-19] MEDS ORDERED: methylPREDNISolone NA SUCC 1000 MG/8 ML VIAL IVPB ONE (11:03)
[2022-12-19] MEDS ORDERED: methylPREDNISolone NA SUCC 125 MG/2 ML VIAL IVPUSH ONE (11:05)
[2022-12-19 12:09] VITALS: RESP 18
[2022-12-19 13:50] VITALS: BP 113/65; PULSE 60; TEMP 98
== END 2022-12-19 14:00 | disposition home or self-care (01) ==
LOC: JASU-SURG 04:05
PROVIDERS: ATTEND Orthopaedic Surgery
PROC: 0RNK4ZZ Release Left Shoulder Joint, Percutaneous Endoscopic Approach (ICD-10-PCS; principal; 2022-12-19 09:00)
DX: M24.9 Joint derangement, unspecified (principal)
CPT/HCPCS: 82962; 94760; C1713

== ENCOUNTER 2023-04-16 14:04 | Inpatient (IN) | payer OTHER ==
[2023-04-16] MEDS ORDERED: MIDAZOLAM HCL 5 MG/1 ML Single Dose Vial IM ONE (14:14)
[2023-04-16] MEDS ORDERED: MIDAZOLAM HCL 5 MG/1 ML Single Dose Vial ONE (14:14)
[2023-04-16] MEDS ORDERED: SODIUM CHLORIDE 1,000 ML IV ONE (14:24)
[2023-04-16] MEDS ORDERED: levETIRAcetam 500 MG/5 ML INJECTION VIAL IVPB ONE ×4 (14:25→16:30)
[2023-04-16 14:58] LABS: EOS % 2.9 % (0-4.5); HEMATOCRIT 42.7 % (35.4-49); HEMOGLOBIN 14.8 GM/dL (11.7-16.9); LYMPH % 41.7 % (8-40); MCH 32.6 pg (25.7-33.7); MCHC 34.6 g/dl (32.0-35.9); MEAN CELL VOLUME 94.2 fl (80-96); MEAN PLT VOLUME 7.8 fl (7.5-11.1); MONO % 7.4 % (3.8-10.2); PLATELET COUNT 201 10^3/uL (134-434); RBC 4.53 M/mm3 (4.00-5.60); RDW 13.6 % (11.9-15.9); WHITE BLOOD COUNT 5.9 K/mm3 (4.0-10.0)
[2023-04-16 15:06] LABS: INR 1.2 (0.83-1.09); PROTHROMBIN TIME (PATIENT) 13.9 SEC (9.7-13.0)
[2023-04-16 15:17] LABS: POTASSIUM 5.1 mmol/L (3.5-5.1)
[2023-04-16 15:19] LABS: ALBUMIN 3.2 g/dl (3.4-5.0); CALCIUM 7.7 mg/dL (8.5-10.1)
[2023-04-16 15:20] LABS: BLOOD UREA NITROGEN 22.5 mg/dL (7-18)
[2023-04-16 15:23] LABS: CREATININE 0.8 mg/dL (0.55-1.3)
[2023-04-16 15:24] LABS: TOT PROT 6.9 g/dl (6.4-8.2)
[2023-04-16 15:25] LABS: BILIRUBIN,TOTAL 0.7 mg/dL (0.2-1)
[2023-04-16] MEDS ORDERED: CALCIUM GLUC IN NACL, ISO-OSM 1 GM/50 ML BAG IVPB ONE ×2 (15:48→16:49)
[2023-04-16] MEDS ORDERED: FOLIC ACID INJECTION - 1 MG, THIAMINE HCL 100 MG, MULTIVIT INJECTION ADULT 10 ML in SOD... IVPB ONE ×2 (15:49→19:20)
[2023-04-16] MEDS ORDERED: WATER IVPB SCH (17:00)
[2023-04-16] MEDS ORDERED: LEVETIRACETAM IVPB SCH (17:00)
[2023-04-16] MEDS ORDERED: DEXTROSE 5% IVPB SCH (17:00)
[2023-04-16] MEDS ORDERED: THIAMINE HCL 200 MG/2 ML VIAL IVPB ONE (17:16)
[2023-04-16] MEDS ORDERED: LORazepam 2 MG/ML SDV VIAL IVPUSH ONE ×2 (17:24→19:15)
[2023-04-16] MEDS ORDERED: LEVETIRACETAM IVPB ONE (17:28)
[2023-04-16] MEDS ORDERED: WATER IVPB ONE (17:28)
[2023-04-16] MEDS ORDERED: DEXTROSE 5% IVPB ONE (17:28)
[2023-04-16] MEDS ORDERED: ALBUTEROL SO4 HFA INHALER IH PRN (18:32)
[2023-04-16] MEDS ORDERED: LORazepam 2 MG/ML SDV VIAL IVPUSH PRN (18:36)
[2023-04-16 19:12] LABS: MAGNESIUM 2.1 mg/dL (1.8-2.4)
[2023-04-16 19:16] LABS: PHOSPHOROUS 3.4 mg/dL (2.5-4.9)
[2023-04-16] MEDS ORDERED: QUEtiapine FUMARATE 25 MG TABLET PO SCH (22:00)
[2023-04-16] MEDS ORDERED: CHLORHEXIDINE GLUCONATE 4% CLEANSER FOR DECOLONIZATION TP SCH (22:00)
[2023-04-16] MEDS ORDERED: levETIRAcetam 500 MG TABLET (FP) PO SCH (22:00)
[2023-04-16] MEDS: INSULIN SLIDING SCALE (NOVOLOG) 1 VIAL SQ SCH (22:06)
[2023-04-16] MEDS: levETIRAcetam 500 MG/5 ML INJECTION VIAL IVPB SCH (22:06)
[2023-04-16] MEDS: MUPIROCIN 2% TOPICAL OINTMENT FOR DECOLONIZATION NS SCH (22:06)
[2023-04-16 23:08] LABS: URINE APPEARANCE CLEAR; URINE BILIRUBIN NEGATIVE (NEGATIVE); URINE COLOR YELLOW; URINE GLUCOSE (UA) NEGATIVE (NEGATIVE); URINE KETONE NEGATIVE (NEGATIVE); URINE LEUK ESTERASE NEGATIVE (NEGATIVE); URINE NITRITE NEGATIVE (NEGATIVE); URINE PROTEIN NEGATIVE (NEGATIVE)
[2023-04-17] MEDS: INSULIN SLIDING SCALE (NOVOLOG) 1 VIAL SQ SCH ×3 (06:35→17:27)
[2023-04-17 06:47] LABS: BASO % 0.9 % (0-2.0); EOS % 4.2 % (0-4.5); HEMATOCRIT 39.7 % (35.4-49); HEMOGLOBIN 14.1 GM/dL (11.7-16.9); LYMPH % 32.9 % (8-40); MCH 33.5 pg (25.7-33.7); MCHC 35.5 g/dl (32.0-35.9); MEAN CELL VOLUME 94.3 fl (80-96); MEAN PLT VOLUME 8.4 fl (7.5-11.1); MONO % 6.2 % (3.8-10.2); NEUT % 55.8 % (42.8-82.8); PLATELET COUNT 164 10^3/uL (134-434); RBC 4.22 M/mm3 (4.00-5.60); RDW 13.6 % (11.9-15.9); WHITE BLOOD COUNT 7.4 K/mm3 (4.0-10.0)
[2023-04-17] MEDS ORDERED: LEVOTHYROXINE NA 25 MCG TABLET (FP) PO SCH (07:00)
[2023-04-17 07:11] LABS: CALCIUM 7.6 mg/dL (8.5-10.1)
[2023-04-17 07:12] LABS: ALBUMIN 2.8 g/dl (3.4-5.0); BLOOD UREA NITROGEN 18.9 mg/dL (7-18); MAGNESIUM 1.7 mg/dL (1.8-2.4)
[2023-04-17 07:15] LABS: CREATININE 0.8 mg/dL (0.55-1.3)
[2023-04-17 07:17] LABS: BILIRUBIN,TOTAL 1.1 mg/dL (0.2-1)
[2023-04-17] MEDS ORDERED: MAGNESIUM SULF 50% (8.12 MEQ/2 ML-1 GM VIAL) IVPB ONE (07:30)
[2023-04-17] MEDS ORDERED: THIAMINE HCL 200 MG/2 ML VIAL IVPB SCH ×3 (09:00→10:00)
[2023-04-17] MEDS: levETIRAcetam 500 MG/5 ML INJECTION VIAL IVPB SCH (09:28)
[2023-04-17] MEDS ORDERED: FAMOTIDINE 20 MG TABLET PO SCH (10:00)
[2023-04-17] MEDS ORDERED: FLUTICASONE/UMECLIDIN/VILANTER(200-62.5-25 TRELEGY ELLIPTA) INAHLER IH SCH (10:00)
[2023-04-17] MEDS ORDERED: ESCITALOPRAM OXALATE 20 MG TABLET PO SCH (10:00)
[2023-04-17] MEDS ORDERED: FOLIC ACID 1 MG TABLET (FP) PO SCH (10:00)
[2023-04-17] MEDS ORDERED: ENOXAPARIN NA (PORCINE) 40 MG/0.4 ML DISP.SYRIN SQ SCH (10:00)
[2023-04-17] MEDS: MUPIROCIN 2% TOPICAL OINTMENT FOR DECOLONIZATION NS SCH (10:16)
[2023-04-17] MEDS: chlordiazePOXIDE HCL 25 MG CAPSULE PO SCH ×2 (11:12→17:04)
[2023-04-17] MEDS ORDERED: LACTATED RINGERS SOLUTION 1,000 ML/1,000 ML INFUS.BAG IV SCH (11:45)
[2023-04-17 15:34] VITALS: TEMP 98.2
[2023-04-17 16:23] VITALS: BMI 39.4
[2023-04-17 20:32] VITALS: BP 146/93; PULSE 80; RESP 15
[2023-04-17] MEDS ORDERED: levETIRAcetam 500 MG TABLET (FP) PO SCH (22:00)
[2023-04-17] MEDS ORDERED: ATORVASTATIN CA 20 MG TABLET (FP) PO SCH (22:00)
[2023-04-19] MEDS ORDERED: chlordiazePOXIDE HCL 25 MG CAPSULE PO SCH (05:00)
[2023-04-20] MEDS ORDERED: chlordiazePOXIDE HCL 10 MG CAPSULE PO SCH (05:00)
[2023-04-21] MEDS ORDERED: chlordiazePOXIDE HCL 10 MG CAPSULE PO SCH (05:00)
[2023-04-22] MEDS ORDERED: chlordiazePOXIDE HCL 10 MG CAPSULE PO ONE (05:00)
== END 2023-04-17 20:34 | disposition left against medical advice (07) | DRG 53 ==
LOC: JER 14:04 → JERBED 17:46 → JICU 18:49
PROVIDERS: ADMIT Internal Medicine Pulmonary Disease; ATTEND Internal Medicine Pulmonary Disease
DX: G40.901 Epilepsy, unspecified, not intractable, with status epilepticus (principal); E83.42 Hypomagnesemia; E11.9 Type 2 diabetes mellitus without complications; E78.5 Hyperlipidemia, unspecified; J45.909 Unspecified asthma, uncomplicated; G47.33 Obstructive sleep apnea (adult) (pediatric); E03.9 Hypothyroidism, unspecified; F32.A Depression, unspecified; R74.01 Elevation of levels of liver transaminase levels; F10.230 Alcohol dependence with withdrawal, uncomplicated; F10.220 Alcohol dependence with intoxication, uncomplicated; Z87.820 Personal history of traumatic brain injury; Z53.29 Procedure and treatment not carried out because of patient's decision for other reasons; Z79.84 Long term (current) use of oral hypoglycemic drugs
CPT/HCPCS: 0241U-QW; 36415; 70450-TC; 71045-TC-FY; 80053; 80177; 80307; 81003; 82962; 83735; 84100; 84484; 85025; 85610; 85730; 87086; 93005; 93010; 94660; 99291

== ENCOUNTER 2023-04-19 10:39 | Inpatient (IN) | payer OTHER ==
[2023-04-19] MEDS ORDERED: MIDAZOLAM HCL 5 MG/1 ML Single Dose Vial ONE (10:42)
[2023-04-19] MEDS ORDERED: RAPID SEQUENCE INTUBATION KIT NR ONE (10:43)
[2023-04-19] MEDS ORDERED: ROCURONIUM BROMIDE 50 MG/5 ML SYRINGE ONE (10:57)
[2023-04-19] MEDS ORDERED: PROPOFOL 1,000,000 MCG/100 ML VIAL IVPB SCH ×2 (11:15→11:30)
[2023-04-19] MEDS ORDERED: LORazepam 2 MG/ML SDV VIAL IM ONE (11:17)
[2023-04-19] MEDS ORDERED: LORazepam 2 MG/ML SDV VIAL IVPUSH ONE ×2 (11:17→11:18)
[2023-04-19] MEDS ORDERED: ETOMIDATE 40 MG/20 ML VIAL IVPUSH ONE (11:18)
[2023-04-19] MEDS ORDERED: ROCURONIUM BROMIDE 50 MG/5 ML VIAL IV ONE (11:18)
[2023-04-19] MEDS ORDERED: diazePAM CARPU-JECT 10 MG/2 ML DISP.SYRIN IVPUSH ONE ×3 (11:26→12:54)
[2023-04-19] MEDS ORDERED: diazePAM CARPU-JECT 10 MG/2 ML DISP.SYRIN ONE ×6 (11:28→13:05)
[2023-04-19] MEDS ORDERED: levETIRAcetam 500 MG/5 ML INJECTION VIAL IVPB ONE (11:31)
[2023-04-19] MEDS ORDERED: PROPOFOL 1,000,000 MCG/100 ML VIAL ONE (11:34)
[2023-04-19 11:46] LABS: VENOUS BASE EXCESS -2.2 mmol/L (-2-2); VENOUS PCO2 48.8 mmHg (38-52); VENOUS PH 7.32 (7.310-7.410)
[2023-04-19] MEDS: PROPOFOL 1,000,000 MCG/100 ML VIAL IVPB SCH ×3 (11:50→21:49)
[2023-04-19 11:53] LABS: INR 0.92 (0.83-1.09); PROTHROMBIN TIME (PATIENT) 10.7 SEC (9.7-13.0)
[2023-04-19 11:56] LABS: ACTIVATED PTT 24.7 SECONDS (25.2-36.5)
[2023-04-19] MEDS ORDERED: LEVETIRACETAM IVPB ONE (12:00)
[2023-04-19] MEDS ORDERED: DEXTROSE 5% IVPB ONE (12:00)
[2023-04-19] MEDS ORDERED: WATER IVPB ONE (12:00)
[2023-04-19 12:01] LABS: BASO % 0.7 % (0-2.0); EOS % 3.3 % (0-4.5); HEMATOCRIT 43.7 % (35.4-49); HEMOGLOBIN 15.7 GM/dL (11.7-16.9); LYMPH % 36.5 % (8-40); MCH 33.6 pg (25.7-33.7); MCHC 35.8 g/dl (32.0-35.9); MEAN CELL VOLUME 93.8 fl (80-96); MEAN PLT VOLUME 9.1 fl (7.5-11.1); MONO % 8.3 % (3.8-10.2); NEUT % 51.2 % (42.8-82.8); PLATELET COUNT 206 10^3/uL (134-434); RBC 4.66 M/mm3 (4.00-5.60); RDW 13.5 % (11.9-15.9); WHITE BLOOD COUNT 9.2 K/mm3 (4.0-10.0)
[2023-04-19 12:06] LABS: POTASSIUM 3.9 mmol/L (3.5-5.1)
[2023-04-19 12:09] LABS: BLOOD UREA NITROGEN 16.7 mg/dL (7-18); MAGNESIUM 1.9 mg/dL (1.8-2.4)
[2023-04-19 12:13] LABS: PHOSPHOROUS 2.4 mg/dL (2.5-4.9)
[2023-04-19 12:14] LABS: BILIRUBIN,TOTAL 0.4 mg/dL (0.2-1); TOT PROT 7.5 g/dl (6.4-8.2)
[2023-04-19 12:16] LABS: ALBUMIN 3.5 g/dl (3.4-5.0); CALCIUM 9.4 mg/dL (8.5-10.1); LACTIC ACID 3.9 mmol/L (0.4-2.0)
[2023-04-19 12:35] LABS: PLATELET ESTIMATE ADEQUATE
[2023-04-19] MEDS ORDERED: PHENobarbital SODIUM 65 MG/1 ML VIAL IVPUSH ONE (12:35)
[2023-04-19] MEDS ORDERED: PHENobarbital SODIUM 65 MG/1 ML VIAL ONE (12:48)
[2023-04-19 12:50] LABS: PH,URINE 5.5 (5.0-8.0); URINE APPEARANCE CLEAR; URINE BILIRUBIN NEGATIVE (NEGATIVE); URINE COLOR YELLOW; URINE GLUCOSE (UA) NEGATIVE (NEGATIVE); URINE KETONE NEGATIVE (NEGATIVE); URINE LEUK ESTERASE NEGATIVE (NEGATIVE); URINE NITRITE NEGATIVE (NEGATIVE); URINE PROTEIN NEGATIVE (NEGATIVE)
[2023-04-19 12:57] LABS: URINE AMPHETAMINES NEGATIVE (NEGATIVE)
[2023-04-19 12:58] LABS: COCAINE, UR NEGATIVE (NEGATIVE); METHADONE, UR NEGATIVE (NEGATIVE); OPIATES, URI NEGATIVE (NEGATIVE); PHENCYCLIDINE,URINE NEGATIVE (NEGATIVE); URINE BARBITURATES NEGATIVE (NEGATIVE)
[2023-04-19 12:59] LABS: URINE BENZODIAZEPINES POSITIVE (NEGATIVE)
[2023-04-19] MEDS ORDERED: FOSPHENYTOIN SODIUM IVPB ONE (13:14)
[2023-04-19] MEDS ORDERED: SODIUM CHLORIDE IVPB ONE (13:14)
[2023-04-19] MEDS ORDERED: SODIUM CHLORIDE 0.9% 500 ML INFUS.BAG IV ONE (13:24)
[2023-04-19] MEDS ORDERED: PROPOFOL 200 MG/20 ML VIAL IVPUSH ONE (14:12)
[2023-04-19] MEDS ORDERED: SODIUM CHLORIDE 1,000 ML IV SCH (15:00)
[2023-04-19] MEDS ORDERED: FOLIC ACID 5 MG/1 ML SQ ONE (15:02)
[2023-04-19] MEDS ORDERED: FOSPHENYTOIN SODIUM 100 MG/2 ML VIAL IVPB SCH (15:30)
[2023-04-19] MEDS: LACTATED RINGERS SOLUTION 1,000 ML/1,000 ML INFUS.BAG IV SCH (16:10)
[2023-04-19] MEDS: THIAMINE HCL 200 MG/2 ML VIAL IVPB SCH (16:21)
[2023-04-19] MEDS ORDERED: POTASSIUM PHOSPHATE 15 MM in DEXTROSE 5%-WATER - 100 ML IVPB ONE (16:43)
[2023-04-19] MEDS ORDERED: MAGNESIUM 1GM/D5W 100ML - 100 ML IVPB IVPB ONE (16:46)
[2023-04-19] MEDS ORDERED: SODIUM CHLORIDE IVPB SCH (18:00)
[2023-04-19] MEDS ORDERED: FOSPHENYTOIN SODIUM IVPB SCH (18:00)
[2023-04-19 18:24] LABS: ARTERIAL BLD GAS O2 SATURATION 99.4 % (95-98); ARTERIAL BLOOD GAS BASE EXCESS -2.5 mmol/L (-2-2); ARTERIAL BLOOD GAS PO2 204.2 mmHg (80-100); ARTERIAL BLOOD GAS pH 7.369 (7.350-7.450)
[2023-04-19 18:26] LABS: ALLENS TEST POSITIVE
[2023-04-19 18:27] LABS: VENT MODE A/C; VENT RATE 14
[2023-04-19] MEDS: MIDAZOLAM IN 0.9 % SOD.CHLORID 100 MG/100 ML PLAST..BAG IVPB SCH (20:13)
[2023-04-19] MEDS: CHLORHEXIDINE GLUCONATE 4% CLEANSER FOR DECOLONIZATION TP SCH (21:48)
[2023-04-19] MEDS: MUPIROCIN 2% TOPICAL OINTMENT FOR DECOLONIZATION NS SCH (21:48)
[2023-04-19] MEDS: levETIRAcetam 500 MG/5 ML INJECTION VIAL IVPB SCH (21:48)
[2023-04-20] MEDS: PROPOFOL 1,000,000 MCG/100 ML VIAL IVPB SCH ×4 (00:34→17:19)
[2023-04-20] MEDS ORDERED: FOSPHENYTOIN SODIUM IVPB SCH (01:31)
[2023-04-20] MEDS ORDERED: SODIUM CHLORIDE IVPB SCH (01:31)
[2023-04-20] MEDS: SODIUM CHLORIDE IVPB SCH ×4 (01:48→18:50)
[2023-04-20] MEDS: FOSPHENYTOIN SODIUM IVPB SCH ×4 (01:48→18:50)
[2023-04-20] MEDS: FENTANYL NS IVPB 500 MCG/100 ML BAG IVPB SCH (06:53)
[2023-04-20] MEDS: LEVOTHYROXINE NA 25 MCG TABLET (FP) PO SCH (06:53)
[2023-04-20] MEDS: LACTATED RINGERS SOLUTION 1,000 ML/1,000 ML INFUS.BAG IV SCH ×2 (07:00→16:22)
[2023-04-20 07:19] LABS: BASO % 0.5 % (0-2.0); HEMATOCRIT 39.1 % (35.4-49); HEMOGLOBIN 13.9 GM/dL (11.7-16.9); LYMPH % 17.1 % (8-40); MCH 33.8 pg (25.7-33.7); MCHC 35.6 g/dl (32.0-35.9); MEAN CELL VOLUME 94.8 fl (80-96); MEAN PLT VOLUME 8.7 fl (7.5-11.1); MONO % 5.8 % (3.8-10.2); NEUT % 72.6 % (42.8-82.8); PLATELET COUNT 165 10^3/uL (134-434); RBC 4.12 M/mm3 (4.00-5.60); WHITE BLOOD COUNT 8.1 K/mm3 (4.0-10.0)
[2023-04-20 07:31] LABS: BLOOD UREA NITROGEN 19.3 mg/dL (7-18); MAGNESIUM 1.9 mg/dL (1.8-2.4)
[2023-04-20 07:34] LABS: CREATININE 0.8 mg/dL (0.55-1.3)
[2023-04-20 07:35] LABS: BILIRUBIN,TOTAL 0.4 mg/dL (0.2-1); TOT PROT 5.8 g/dl (6.4-8.2)
[2023-04-20 07:39] LABS: ALBUMIN 2.7 g/dl (3.4-5.0); CALCIUM 7.8 mg/dL (8.5-10.1)
[2023-04-20] MEDS: PANTOPRAZOLE SODIUM 40 MG VIAL IVPUSH SCH (09:01)
[2023-04-20] MEDS: levETIRAcetam 500 MG/5 ML INJECTION VIAL IVPB SCH ×2 (09:01→22:06)
[2023-04-20] MEDS: ENOXAPARIN NA (PORCINE) 40 MG/0.4 ML DISP.SYRIN SQ SCH (09:01)
[2023-04-20] MEDS: MUPIROCIN 2% TOPICAL OINTMENT FOR DECOLONIZATION NS SCH ×2 (09:02→22:06)
[2023-04-20] MEDS ORDERED: DEXMEDETOMIDINE PREMIX 400 MCG/100 ML BAG IVPB ONE (10:09)
[2023-04-20] MEDS: DEXMEDETOMIDINE PREMIX 400 MCG/100 ML BAG IVPB SCH ×2 (10:19→17:32)
[2023-04-20] MEDS: THIAMINE HCL 200 MG/2 ML VIAL IVPB SCH (10:19)
[2023-04-20 14:54] VITALS: BMI 40.0
[2023-04-20] MEDS: MIDAZOLAM IN 0.9 % SOD.CHLORID 100 MG/100 ML PLAST..BAG IVPB SCH ×2 (17:18→21:55)
[2023-04-20] MEDS: CHLORHEXIDINE GLUCONATE 4% CLEANSER FOR DECOLONIZATION TP SCH (22:06)
[2023-04-20] MEDS ORDERED: MIDAZOLAM HCL 10 MG/10 ML VIAL IVPUSH ONE (23:45)
[2023-04-20] MEDS ORDERED: FENTANYL CITRATE/PF 50 MCG/ML VIAL IVPUSH ONE (23:53)
[2023-04-21] MEDS: MIDAZOLAM IN 0.9 % SOD.CHLORID 100 MG/100 ML PLAST..BAG IVPB SCH ×3 (01:04→20:06)
[2023-04-21] MEDS: DEXMEDETOMIDINE PREMIX 400 MCG/100 ML BAG IVPB SCH ×6 (01:35→20:33)
[2023-04-21] MEDS: FOSPHENYTOIN SODIUM IVPB SCH ×4 (01:36→20:19)
[2023-04-21] MEDS: SODIUM CHLORIDE IVPB SCH ×4 (01:36→20:19)
[2023-04-21] MEDS: LEVOTHYROXINE NA 25 MCG TABLET (FP) PO SCH (06:06)
[2023-04-21] MEDS: FENTANYL NS IVPB 500 MCG/100 ML BAG IVPB SCH (06:33)
[2023-04-21] MEDS: LORazepam 2 MG/ML SDV VIAL IVPUSH PRN ×3 (07:17→20:06)
[2023-04-21] MEDS ORDERED: chlordiazePOXIDE HCL 25 MG CAPSULE PO PRN (07:30)
[2023-04-21 07:56] LABS: POTASSIUM 4.2 mmol/L (3.5-5.1)
[2023-04-21 08:01] LABS: CALCIUM 7.5 mg/dL (8.5-10.1)
[2023-04-21 08:02] LABS: ALBUMIN 2.5 g/dl (3.4-5.0); BLOOD UREA NITROGEN 17.4 mg/dL (7-18); MAGNESIUM 1.9 mg/dL (1.8-2.4)
[2023-04-21 08:04] LABS: BILIRUBIN,DIRECT 0.3 mg/dL (0.0-0.2); CREATININE 0.9 mg/dL (0.55-1.3)
[2023-04-21 08:05] LABS: PHOSPHOROUS 2.7 mg/dL (2.5-4.9)
[2023-04-21 08:06] LABS: TOT PROT 5.9 g/dl (6.4-8.2)
[2023-04-21 09:01] LABS: BASO % 0.3 % (0-2.0); EOS % 4.7 % (0-4.5); HEMATOCRIT 40.3 % (35.4-49); LYMPH % 15.3 % (8-40); MCH 33.2 pg (25.7-33.7); MCHC 34.7 g/dl (32.0-35.9); MEAN CELL VOLUME 95.6 fl (80-96); MONO % 7.5 % (3.8-10.2); NEUT % 72.2 % (42.8-82.8); RBC 4.22 M/mm3 (4.00-5.60); RDW 13.8 % (11.9-15.9); WHITE BLOOD COUNT 8.7 K/mm3 (4.0-10.0)
[2023-04-21] MEDS ORDERED: LACTULOSE 20 GM/30 ML UDC (FOR ORAL USE ONLY) PO PRN (09:03)
[2023-04-21 09:24] LABS: MEAN PLT VOLUME 9.4 fl (7.5-11.1); PLATELET COUNT 114 10^3/uL (134-434)
[2023-04-21] MEDS: levETIRAcetam 500 MG/5 ML INJECTION VIAL IVPB SCH ×2 (09:25→21:46)
[2023-04-21] MEDS: FOLIC ACID 1 MG TABLET (FP) PO SCH (09:25)
[2023-04-21] MEDS: ENOXAPARIN NA (PORCINE) 40 MG/0.4 ML DISP.SYRIN SQ SCH (09:25)
[2023-04-21] MEDS: PANTOPRAZOLE SODIUM 40 MG VIAL IVPUSH SCH (09:26)
[2023-04-21] MEDS: MUPIROCIN 2% TOPICAL OINTMENT FOR DECOLONIZATION NS SCH ×2 (09:26→21:46)
[2023-04-21] MEDS ORDERED: MIDAZOLAM HCL 2 MG/2 ML SINGLE DOSE VIAL ONE (09:46)
[2023-04-21] MEDS ORDERED: ALBUTEROL SO4 2.5/IPRATROPIUM 0.5 INH SOL 3 ML VIAL.NEB. NEB ONE (10:02)
[2023-04-21] MEDS ORDERED: ALBUTEROL SO4 2.5/IPRATROPIUM 0.5 INH SOL 3 ML VIAL.NEB. NEB PRN (10:15)
[2023-04-21] MEDS: chlordiazePOXIDE HCL 25 MG CAPSULE PO SCH ×3 (10:34→23:02)
[2023-04-21] MEDS: THIAMINE HCL 200 MG/2 ML VIAL IVPB SCH (10:37)
[2023-04-21] MEDS: LACTULOSE 20 GM/30 ML UDC (FOR ORAL USE ONLY) PO SCH ×2 (10:38→21:46)
[2023-04-21] MEDS ORDERED: FUROSEMIDE 40 MG/4 ML INJECTABLE VIAL IVPUSH ONE (11:29)
[2023-04-21 18:35] LABS: EPI CELLS 3 /uL (0-25.1); HYALINE CASTS 1 /uL (0-3.1); URINE APPEARANCE CLOUDY; URINE BACTERIA 8 /uL (0-1359); URINE BILIRUBIN NEGATIVE (NEGATIVE); URINE COLOR YELLOW; URINE GLUCOSE (UA) NEGATIVE (NEGATIVE); URINE KETONE NEGATIVE (NEGATIVE); URINE LEUK ESTERASE NEGATIVE (NEGATIVE); URINE NITRITE NEGATIVE (NEGATIVE); URINE PROTEIN NEGATIVE (NEGATIVE); URINE RBC 92 /uL (0-23.9); URINE UROBILINOGEN 0.2 mg/dL (0.2-1.0); URINE WBC 9 /uL (0-25.8)
[2023-04-21] MEDS: CHLORHEXIDINE GLUCONATE 4% CLEANSER FOR DECOLONIZATION TP SCH (21:46)
[2023-04-22] MEDS: FOSPHENYTOIN SODIUM IVPB SCH ×4 (00:55→19:28)
[2023-04-22] MEDS: SODIUM CHLORIDE IVPB SCH ×4 (00:55→19:28)
[2023-04-22] MEDS: DEXMEDETOMIDINE PREMIX 400 MCG/100 ML BAG IVPB SCH ×5 (03:01→09:17)
[2023-04-22] MEDS: LORazepam 2 MG/ML SDV VIAL IVPUSH PRN ×4 (05:04→21:46)
[2023-04-22] MEDS: chlordiazePOXIDE HCL 25 MG CAPSULE PO SCH ×2 (05:04→10:08)
[2023-04-22] MEDS: FENTANYL NS IVPB 500 MCG/100 ML BAG IVPB SCH ×3 (05:05→13:06)
[2023-04-22 06:25] LABS: ARTERIAL BLOOD GAS BASE EXCESS 2.7 mmol/L (-2-2); ARTERIAL BLOOD GAS PO2 65.5 mmHg (80-100); ARTERIAL BLOOD GAS pH 7.365 (7.350-7.450)
[2023-04-22 06:34] LABS: ALLENS TEST POSITIVE
[2023-04-22 06:35] LABS: VENT MODE A/C; VENT RATE 14
[2023-04-22] MEDS: LEVOTHYROXINE NA 25 MCG TABLET (FP) PO SCH (06:47)
[2023-04-22 07:42] LABS: POTASSIUM 4.1 mmol/L (3.5-5.1)
[2023-04-22 07:44] LABS: ALBUMIN 2.4 g/dl (3.4-5.0); CALCIUM 7.8 mg/dL (8.5-10.1)
[2023-04-22 07:45] LABS: BLOOD UREA NITROGEN 16.9 mg/dL (7-18); MAGNESIUM 1.9 mg/dL (1.8-2.4)
[2023-04-22] MEDS: MIDAZOLAM IN 0.9 % SOD.CHLORID 100 MG/100 ML PLAST..BAG IVPB SCH ×2 (07:47→20:00)
[2023-04-22 07:48] LABS: CREATININE 0.9 mg/dL (0.55-1.3)
[2023-04-22 07:49] LABS: TOT PROT 5.7 g/dl (6.4-8.2)
[2023-04-22 07:54] LABS: BASO % 0.2 % (0-2.0); EOS % 3.4 % (0-4.5); HEMATOCRIT 38.4 % (35.4-49); HEMOGLOBIN 13.5 GM/dL (11.7-16.9); LYMPH % 11.2 % (8-40); MCH 33.5 pg (25.7-33.7); MCHC 35.2 g/dl (32.0-35.9); MEAN CELL VOLUME 95.4 fl (80-96); MEAN PLT VOLUME 9.3 fl (7.5-11.1); MONO % 7.9 % (3.8-10.2); NEUT % 77.3 % (42.8-82.8); PLATELET COUNT 159 10^3/uL (134-434); RBC 4.02 M/mm3 (4.00-5.60); RDW 13.3 % (11.9-15.9); WHITE BLOOD COUNT 7.2 K/mm3 (4.0-10.0)
[2023-04-22] MEDS: ENOXAPARIN NA (PORCINE) 40 MG/0.4 ML DISP.SYRIN SQ SCH (09:18)
[2023-04-22] MEDS: LACTULOSE 20 GM/30 ML UDC (FOR ORAL USE ONLY) PO SCH ×2 (09:18→21:43)
[2023-04-22] MEDS: levETIRAcetam 500 MG/5 ML INJECTION VIAL IVPB SCH ×2 (09:18→21:43)
[2023-04-22] MEDS: THIAMINE HCL 200 MG/2 ML VIAL IVPB SCH (09:18)
[2023-04-22] MEDS: PANTOPRAZOLE SODIUM 40 MG VIAL IVPUSH SCH (09:18)
[2023-04-22] MEDS: FOLIC ACID 1 MG TABLET (FP) PO SCH (09:24)
[2023-04-22] MEDS ORDERED: NAPH,MB-DB/K PH,MBDB POWDER PACKET GT ONE (09:30)
[2023-04-22] MEDS: MUPIROCIN 2% TOPICAL OINTMENT FOR DECOLONIZATION NS SCH ×2 (10:10→21:44)
[2023-04-22] MEDS ORDERED: PROPOFOL 20 ML ONE (10:19)
[2023-04-22] MEDS ORDERED: PROPOFOL 1,000,000 MCG/100 ML VIAL ONE (10:24)
[2023-04-22] MEDS ORDERED: SUCCINYLCHOLINE CHLORIDE 200 MG/10 ML VIAL ONE (10:31)
[2023-04-22] MEDS ORDERED: ALBUTEROL SO4 2.5/IPRATROPIUM 0.5 INH SOL 3 ML VIAL.NEB. NEB PRN (10:52)
[2023-04-22] MEDS ORDERED: LACTATED RINGERS SOLUTION 1,000 ML/1,000 ML INFUS.BAG IV STA (11:21)
[2023-04-22] MEDS ORDERED: SUCCINYLCHOLINE CHLORIDE 200 MG/10 ML VIAL IVPUSH ONE (11:31)
[2023-04-22] MEDS ORDERED: PROPOFOL 200 MG/20 ML VIAL IVPUSH ONE (11:32)
[2023-04-22] MEDS: PROPOFOL 1,000,000 MCG/100 ML VIAL IVPB SCH ×3 (11:45→18:07)
[2023-04-22] MEDS ORDERED: PIPERACILLIN/TAZOB 4.5 GM 4.5 GM in DEXTROSE 5%-WATER 100 ML IVPB SCH (11:45)
[2023-04-22] MEDS: ALBUTEROL SO4 2.5/IPRATROPIUM 0.5 INH SOL 3 ML VIAL.NEB. NEB SCH ×3 (12:40→20:23)
[2023-04-22] MEDS ORDERED: ACETAMINOPHEN INJECTION 100 ML IVPB ONE (14:23)
[2023-04-22] MEDS ORDERED: ACETAMINOPHEN 1000 MG/100 ML BAG IVPB ONE (14:30)
[2023-04-22] MEDS: methylPREDNISolone NA SUCC 40 MG/1 ML VIAL IVPUSH SCH ×2 (14:44→21:43)
[2023-04-22] MEDS ORDERED: ACETAMINOPHEN 1000 MG/100 ML BAG IVPB PRN (15:11)
[2023-04-22] MEDS: AMINO ACIDS/PROTEIN HYDROLYS 30 ML LIQUID.PKT PO SCH (17:49)
[2023-04-22] MEDS: PIPERACILLIN/TAZOB 4.5 GM 4.5 GM in DEXTROSE 5%-WATER 100 ML IVPB SCH (17:49)
[2023-04-22 20:17] LABS: ARTERIAL BLD GAS O2 SATURATION 97.2 % (95-98); ARTERIAL BLOOD GAS BASE EXCESS -0.5 mmol/L (-2-2); ARTERIAL BLOOD GAS pH 7.299 (7.350-7.450)
[2023-04-22 20:19] LABS: ALLENS TEST POSITIVE
[2023-04-22 20:20] LABS: VENT MODE A/C
[2023-04-22 20:21] LABS: VENT RATE 24
[2023-04-22] MEDS: CHLORHEXIDINE GLUCONATE 4% CLEANSER FOR DECOLONIZATION TP SCH (21:44)
[2023-04-23] MEDS: PROPOFOL 1,000,000 MCG/100 ML VIAL IVPB SCH ×5 (00:01→22:23)
[2023-04-23] MEDS: LORazepam 2 MG/ML SDV VIAL IVPUSH PRN ×2 (00:03→22:22)
[2023-04-23] MEDS: MIDAZOLAM IN 0.9 % SOD.CHLORID 100 MG/100 ML PLAST..BAG IVPB SCH ×3 (00:55→20:23)
[2023-04-23] MEDS: FOSPHENYTOIN SODIUM IVPB SCH ×4 (01:15→20:24)
[2023-04-23] MEDS: SODIUM CHLORIDE IVPB SCH ×4 (01:15→20:24)
[2023-04-23] MEDS: PIPERACILLIN/TAZOB 4.5 GM 4.5 GM in DEXTROSE 5%-WATER 100 ML IVPB SCH ×2 (02:47→09:13)
[2023-04-23] MEDS ORDERED: chlordiazePOXIDE HCL 25 MG CAPSULE PO SCH (05:00)
[2023-04-23] MEDS: FENTANYL NS IVPB 500 MCG/100 ML BAG IVPB SCH ×4 (06:10→17:12)
[2023-04-23] MEDS: methylPREDNISolone NA SUCC 40 MG/1 ML VIAL IVPUSH SCH ×3 (06:30→21:27)
[2023-04-23] MEDS: LEVOTHYROXINE NA 25 MCG TABLET (FP) PO SCH (06:31)
[2023-04-23 07:04] LABS: BASO % 0.2 % (0-2.0); EOS % 0.5 % (0-4.5); HEMATOCRIT 34.4 % (35.4-49); HEMOGLOBIN 11.7 GM/dL (11.7-16.9); LYMPH % 10.2 % (8-40); MCH 33.2 pg (25.7-33.7); MCHC 34.1 g/dl (32.0-35.9); MEAN CELL VOLUME 97.4 fl (80-96); MEAN PLT VOLUME 8.9 fl (7.5-11.1); MONO % 7.3 % (3.8-10.2); NEUT % 81.8 % (42.8-82.8); PLATELET COUNT 166 10^3/uL (134-434); RBC 3.53 M/mm3 (4.00-5.60); RDW 13.8 % (11.9-15.9); WHITE BLOOD COUNT 8.3 K/mm3 (4.0-10.0)
[2023-04-23 07:30] LABS: POTASSIUM 4.1 mmol/L (3.5-5.1)
[2023-04-23 07:35] LABS: CALCIUM 7.6 mg/dL (8.5-10.1)
[2023-04-23 07:36] LABS: BLOOD UREA NITROGEN 9.4 mg/dL (7-18); MAGNESIUM 2.1 mg/dL (1.8-2.4)
[2023-04-23 07:39] LABS: CREATININE 0.8 mg/dL (0.55-1.3)
[2023-04-23 07:40] LABS: BILIRUBIN,TOTAL 0.7 mg/dL (0.2-1); TOT PROT 5.4 g/dl (6.4-8.2)
[2023-04-23] MEDS: ALBUTEROL SO4 2.5/IPRATROPIUM 0.5 INH SOL 3 ML VIAL.NEB. NEB SCH ×4 (08:28→20:00)
[2023-04-23] MEDS ORDERED: FUROSEMIDE 40 MG/4 ML INJECTABLE VIAL IVPUSH ONE ×2 (08:30→18:50)
[2023-04-23] MEDS: AMINO ACIDS/PROTEIN HYDROLYS 30 ML LIQUID.PKT PO SCH ×2 (08:55→17:11)
[2023-04-23] MEDS: MUPIROCIN 2% TOPICAL OINTMENT FOR DECOLONIZATION NS SCH ×2 (09:02→21:29)
[2023-04-23 09:05] LABS: N-TERMINAL BNP 281.4 pg/ml (5-125)
[2023-04-23] MEDS: ENOXAPARIN NA (PORCINE) 40 MG/0.4 ML DISP.SYRIN SQ SCH (09:13)
[2023-04-23] MEDS: levETIRAcetam 500 MG/5 ML INJECTION VIAL IVPB SCH ×2 (09:13→21:27)
[2023-04-23] MEDS: FOLIC ACID 1 MG TABLET (FP) PO SCH (09:14)
[2023-04-23] MEDS: THIAMINE HCL 200 MG/2 ML VIAL IVPB SCH (09:14)
[2023-04-23] MEDS: NAPH,MB-DB/K PH,MBDB POWDER PACKET GT SCH (09:14)
[2023-04-23] MEDS: LACTULOSE 20 GM/30 ML UDC (FOR ORAL USE ONLY) PO SCH ×2 (09:14→21:27)
[2023-04-23] MEDS: PANTOPRAZOLE SODIUM 40 MG VIAL IVPUSH SCH (09:14)
[2023-04-23 09:21] LABS: ARTERIAL BLD GAS O2 SATURATION 92.4 % (95-98); ARTERIAL BLOOD GAS BASE EXCESS 3.3 mmol/L (-2-2); ARTERIAL BLOOD GAS pH 7.405 (7.350-7.450)
[2023-04-23 09:26] LABS: ALLENS TEST POSITIVE
[2023-04-23 09:27] LABS: VENT MODE TIDAL V 430; VENT RATE 24
[2023-04-23] MEDS ORDERED: PIPERACILLIN/TAZOB 4.5 GM 4.5 GM in DEXTROSE 5%-WATER 100 ML IVPB SCH (15:00)
[2023-04-23] MEDS: DEXMEDETOMIDINE PREMIX 400 MCG/100 ML BAG IVPB SCH (16:00)
[2023-04-23] MEDS: CEFTRIAXONE 2 GM in DEXTROSE 5%-WATER - 50 ML IVPB SCH (16:04)
[2023-04-23 21:06] LABS: POTASSIUM 3.5 mmol/L (3.5-5.1)
[2023-04-23 21:08] LABS: CALCIUM 7.8 mg/dL (8.5-10.1)
[2023-04-23 21:09] LABS: BLOOD UREA NITROGEN 9.2 mg/dL (7-18)
[2023-04-23 21:12] LABS: CREATININE 0.8 mg/dL (0.55-1.3)
[2023-04-23 21:14] LABS: BILIRUBIN,TOTAL 0.3 mg/dL (0.2-1); TOT PROT 5.5 g/dl (6.4-8.2)
[2023-04-23] MEDS: CHLORHEXIDINE GLUCONATE 4% CLEANSER FOR DECOLONIZATION TP SCH (21:28)
[2023-04-23] MEDS: POLYETHYLENE GLYCOL (HEALTHYLAX) 3350 17 GM PACKET PO SCH (21:28)
[2023-04-23] MEDS: SENNOSIDES 8.6MG TABLET (FP) PO SCH (21:29)
[2023-04-23] MEDS ORDERED: KCL 20 MEQ PREMIX BAG 100 ML IVPB SCH (22:45)
[2023-04-24] MEDS ORDERED: chlordiazePOXIDE HCL 10 MG CAPSULE PO PRN
[2023-04-24] MEDS: LORazepam 2 MG/ML SDV VIAL IVPUSH PRN (00:27)
[2023-04-24] MEDS: PROPOFOL 1,000,000 MCG/100 ML VIAL IVPB SCH ×5 (01:31→18:08)
[2023-04-24] MEDS: FOSPHENYTOIN SODIUM IVPB SCH ×4 (02:16→20:21)
[2023-04-24] MEDS: SODIUM CHLORIDE IVPB SCH ×4 (02:16→20:21)
[2023-04-24] MEDS: MIDAZOLAM IN 0.9 % SOD.CHLORID 100 MG/100 ML PLAST..BAG IVPB SCH ×2 (04:52→17:00)
[2023-04-24] MEDS ORDERED: chlordiazePOXIDE HCL 10 MG CAPSULE PO SCH (05:00)
[2023-04-24] MEDS: methylPREDNISolone NA SUCC 40 MG/1 ML VIAL IVPUSH SCH (05:41)
[2023-04-24] MEDS: LEVOTHYROXINE NA 25 MCG TABLET (FP) PO SCH (06:13)
[2023-04-24 06:57] LABS: BASO % 0.3 % (0-2.0); EOS % 1.7 % (0-4.5); HEMATOCRIT 31.8 % (35.4-49); HEMOGLOBIN 11.1 GM/dL (11.7-16.9); LYMPH % 15.7 % (8-40); MCHC 34.9 g/dl (32.0-35.9); MEAN CELL VOLUME 97.4 fl (80-96); MEAN PLT VOLUME 8.7 fl (7.5-11.1); MONO % 7.8 % (3.8-10.2); NEUT % 74.5 % (42.8-82.8); PLATELET COUNT 183 10^3/uL (134-434); RBC 3.27 M/mm3 (4.00-5.60); RDW 13.7 % (11.9-15.9); WHITE BLOOD COUNT 7.7 K/mm3 (4.0-10.0)
[2023-04-24 07:13] LABS: POTASSIUM 4.1 mmol/L (3.5-5.1)
[2023-04-24 07:19] LABS: BLOOD UREA NITROGEN 10.2 mg/dL (7-18); CALCIUM 7.7 mg/dL (8.5-10.1)
[2023-04-24 07:22] LABS: CREATININE 0.8 mg/dL (0.55-1.3)
[2023-04-24 07:23] LABS: BILIRUBIN,TOTAL 0.3 mg/dL (0.2-1); TOT PROT 5.5 g/dl (6.4-8.2)
[2023-04-24] MEDS: ALBUTEROL SO4 2.5/IPRATROPIUM 0.5 INH SOL 3 ML VIAL.NEB. NEB SCH ×4 (07:50→21:02)
[2023-04-24] MEDS: AMINO ACIDS/PROTEIN HYDROLYS 30 ML LIQUID.PKT PO SCH ×2 (07:50→18:08)
[2023-04-24] MEDS: CEFTRIAXONE 2 GM in DEXTROSE 5%-WATER - 50 ML IVPB SCH (09:51)
[2023-04-24] MEDS: PANTOPRAZOLE SODIUM 40 MG VIAL IVPUSH SCH (09:52)
[2023-04-24] MEDS: levETIRAcetam 500 MG/5 ML INJECTION VIAL IVPB SCH ×2 (09:52→21:09)
[2023-04-24] MEDS: THIAMINE HCL 200 MG/2 ML VIAL IVPB SCH (09:52)
[2023-04-24] MEDS: ENOXAPARIN NA (PORCINE) 40 MG/0.4 ML DISP.SYRIN SQ SCH (09:52)
[2023-04-24] MEDS: POLYETHYLENE GLYCOL (HEALTHYLAX) 3350 17 GM PACKET PO SCH ×2 (09:52→21:09)
[2023-04-24] MEDS: FOLIC ACID 1 MG TABLET (FP) PO SCH (09:52)
[2023-04-24] MEDS: MUPIROCIN 2% TOPICAL OINTMENT FOR DECOLONIZATION NS SCH (10:04)
[2023-04-24 10:35] LABS: ARTERIAL BLD GAS O2 SATURATION 96.4 % (95-98); ARTERIAL BLOOD GAS BASE EXCESS 5.5 mmol/L (-2-2); ARTERIAL BLOOD GAS PO2 85.3 mmHg (80-100); ARTERIAL BLOOD GAS pH 7.405 (7.350-7.450)
[2023-04-24 10:37] LABS: ALLENS TEST POSITIVE
[2023-04-24 10:39] LABS: VENT MODE A/C; VENT RATE 24
[2023-04-24] MEDS: SENNOSIDES 8.6MG TABLET (FP) PO SCH ×2 (10:51→21:09)
[2023-04-24] MEDS: NAPH,MB-DB/K PH,MBDB POWDER PACKET GT SCH (10:51)
[2023-04-24] MEDS: FUROSEMIDE 40 MG/4 ML INJECTABLE VIAL IVPUSH SCH (12:30)
[2023-04-24] MEDS ORDERED: BISACODYL 10 MG SUPP.RECT PR ONE (12:58)
[2023-04-24] MEDS: DEXMEDETOMIDINE PREMIX 400 MCG/100 ML BAG IVPB SCH ×2 (14:42→22:00)
[2023-04-24] MEDS: FENTANYL NS IVPB 500 MCG/100 ML BAG IVPB SCH ×2 (17:10→20:22)
[2023-04-24] MEDS: CHLORHEXIDINE GLUCONATE 4% CLEANSER FOR DECOLONIZATION TP SCH (21:09)
[2023-04-25] MEDS: SODIUM CHLORIDE IVPB SCH ×4 (00:45→19:32)
[2023-04-25] MEDS: FOSPHENYTOIN SODIUM IVPB SCH ×4 (00:45→19:32)
[2023-04-25] MEDS ORDERED: chlordiazePOXIDE HCL 10 MG CAPSULE PO SCH (05:00)
[2023-04-25] MEDS: PROPOFOL 1,000,000 MCG/100 ML VIAL IVPB SCH ×2 (05:35→13:12)
[2023-04-25] MEDS: FENTANYL NS IVPB 500 MCG/100 ML BAG IVPB SCH (06:45)
[2023-04-25] MEDS: LEVOTHYROXINE NA 25 MCG TABLET (FP) PO SCH (06:45)
[2023-04-25] MEDS: MIDAZOLAM IN 0.9 % SOD.CHLORID 100 MG/100 ML PLAST..BAG IVPB SCH (06:45)
[2023-04-25 07:37] LABS: BASO % 0.7 % (0-2.0); EOS % 4.6 % (0-4.5); HEMATOCRIT 35.2 % (35.4-49); HEMOGLOBIN 11.7 GM/dL (11.7-16.9); LYMPH % 25.3 % (8-40); MCH 32.5 pg (25.7-33.7); MCHC 33.3 g/dl (32.0-35.9); MEAN CELL VOLUME 97.6 fl (80-96); MEAN PLT VOLUME 8.8 fl (7.5-11.1); NEUT % 59.4 % (42.8-82.8); PLATELET COUNT 223 10^3/uL (134-434); RDW 13.9 % (11.9-15.9); WHITE BLOOD COUNT 6.3 K/mm3 (4.0-10.0)
[2023-04-25] MEDS: ALBUTEROL SO4 2.5/IPRATROPIUM 0.5 INH SOL 3 ML VIAL.NEB. NEB SCH ×4 (07:50→21:36)
[2023-04-25 07:52] LABS: POTASSIUM 3.6 mmol/L (3.5-5.1)
[2023-04-25 07:56] LABS: CALCIUM 8.5 mg/dL (8.5-10.1)
[2023-04-25 07:57] LABS: ALBUMIN 2.1 g/dl (3.4-5.0); BLOOD UREA NITROGEN 13.6 mg/dL (7-18); MAGNESIUM 2.2 mg/dL (1.8-2.4)
[2023-04-25 07:59] LABS: CREATININE 0.7 mg/dL (0.55-1.3); PHOSPHOROUS 2.7 mg/dL (2.5-4.9)
[2023-04-25 08:00] LABS: BILIRUBIN,TOTAL 0.2 mg/dL (0.2-1)
[2023-04-25 08:01] LABS: TOT PROT 5.7 g/dl (6.4-8.2)
[2023-04-25] MEDS: PANTOPRAZOLE SODIUM 40 MG VIAL IVPUSH SCH (09:20)
[2023-04-25] MEDS: methylPREDNISolone NA SUCC 40 MG/1 ML VIAL IVPUSH SCH (09:21)
[2023-04-25] MEDS: FOLIC ACID 1 MG TABLET (FP) PO SCH (09:21)
[2023-04-25] MEDS: AMINO ACIDS/PROTEIN HYDROLYS 30 ML LIQUID.PKT PO SCH ×2 (09:21→18:43)
[2023-04-25] MEDS: FUROSEMIDE 40 MG/4 ML INJECTABLE VIAL IVPUSH SCH (09:21)
[2023-04-25] MEDS: SENNOSIDES 8.6MG TABLET (FP) PO SCH ×2 (09:21→21:29)
[2023-04-25] MEDS: ENOXAPARIN NA (PORCINE) 40 MG/0.4 ML DISP.SYRIN SQ SCH (09:22)
[2023-04-25] MEDS: THIAMINE HCL 200 MG/2 ML VIAL IVPB SCH (09:23)
[2023-04-25] MEDS: NAPH,MB-DB/K PH,MBDB POWDER PACKET GT SCH (09:23)
[2023-04-25] MEDS: POLYETHYLENE GLYCOL (HEALTHYLAX) 3350 17 GM PACKET PO SCH ×2 (09:44→21:29)
[2023-04-25] MEDS: CEFTRIAXONE 2 GM in DEXTROSE 5%-WATER - 50 ML IVPB SCH (10:30)
[2023-04-25] MEDS: levETIRAcetam 500 MG/5 ML INJECTION VIAL IVPB SCH (10:46)
[2023-04-25] MEDS: DEXMEDETOMIDINE PREMIX 400 MCG/100 ML BAG IVPB SCH ×3 (13:14→23:32)
[2023-04-25] MEDS ORDERED: LORazepam 2 MG/ML SDV VIAL IVPUSH ONE (18:28)
[2023-04-25] MEDS: lamoTRIgine 25 MG TABLET PO SCH (21:29)
[2023-04-25] MEDS: CHLORHEXIDINE GLUCONATE 4% CLEANSER FOR DECOLONIZATION TP SCH (21:31)
[2023-04-26] MEDS: FOSPHENYTOIN SODIUM IVPB SCH ×4 (01:38→21:20)
[2023-04-26] MEDS: SODIUM CHLORIDE IVPB SCH ×4 (01:38→21:20)
[2023-04-26] MEDS: DEXMEDETOMIDINE PREMIX 400 MCG/100 ML BAG IVPB SCH ×2 (02:38→05:15)
[2023-04-26] MEDS ORDERED: chlordiazePOXIDE HCL 10 MG CAPSULE PO ONE (05:00)
[2023-04-26] MEDS: LEVOTHYROXINE NA 25 MCG TABLET (FP) PO SCH (06:21)
[2023-04-26 07:44] LABS: BASO % 0.6 % (0-2.0); EOS % 2.4 % (0-4.5); HEMATOCRIT 36.1 % (35.4-49); HEMOGLOBIN 12.4 GM/dL (11.7-16.9); LYMPH % 19.1 % (8-40); MCHC 34.4 g/dl (32.0-35.9); MEAN CELL VOLUME 95.9 fl (80-96); MEAN PLT VOLUME 8.8 fl (7.5-11.1); MONO % 9.4 % (3.8-10.2); NEUT % 68.5 % (42.8-82.8); PLATELET COUNT 251 10^3/uL (134-434); RBC 3.77 M/mm3 (4.00-5.60); RDW 13.4 % (11.9-15.9)
[2023-04-26] MEDS ORDERED: DEXMEDETOMIDINE PREMIX 400 MCG/100 ML BAG IVPB SCH ×2 (07:45→08:00)
[2023-04-26 08:03] LABS: POTASSIUM 3.4 mmol/L (3.5-5.1)
[2023-04-26 08:07] LABS: CALCIUM 8.5 mg/dL (8.5-10.1)
[2023-04-26 08:09] LABS: ALBUMIN 2.4 g/dl (3.4-5.0); BLOOD UREA NITROGEN 14.8 mg/dL (7-18); MAGNESIUM 2.1 mg/dL (1.8-2.4)
[2023-04-26 08:14] LABS: BILIRUBIN,TOTAL 0.6 mg/dL (0.2-1); CREATININE 0.7 mg/dL (0.55-1.3); PHOSPHOROUS 2.1 mg/dL (2.5-4.9)
[2023-04-26 08:15] LABS: TOT PROT 6.2 g/dl (6.4-8.2)
[2023-04-26] MEDS: ALBUTEROL SO4 2.5/IPRATROPIUM 0.5 INH SOL 3 ML VIAL.NEB. NEB SCH (08:15)
[2023-04-26] MEDS: methylPREDNISolone NA SUCC 40 MG/1 ML VIAL IVPUSH SCH (09:06)
[2023-04-26] MEDS: POLYETHYLENE GLYCOL (HEALTHYLAX) 3350 17 GM PACKET PO SCH (09:06)
[2023-04-26] MEDS: lamoTRIgine 25 MG TABLET PO SCH ×2 (09:06→21:19)
[2023-04-26] MEDS: SENNOSIDES 8.6MG TABLET (FP) PO SCH (09:06)
[2023-04-26] MEDS: NAPH,MB-DB/K PH,MBDB POWDER PACKET GT SCH (09:06)
[2023-04-26] MEDS: FUROSEMIDE 40 MG/4 ML INJECTABLE VIAL IVPUSH SCH (09:06)
[2023-04-26] MEDS: PANTOPRAZOLE SODIUM 40 MG VIAL IVPUSH SCH (09:06)
[2023-04-26] MEDS: FOLIC ACID 1 MG TABLET (FP) PO SCH (09:06)
[2023-04-26] MEDS: ENOXAPARIN NA (PORCINE) 40 MG/0.4 ML DISP.SYRIN SQ SCH (09:06)
[2023-04-26] MEDS: AMINO ACIDS/PROTEIN HYDROLYS 30 ML LIQUID.PKT PO SCH (09:06)
[2023-04-26] MEDS: THIAMINE HCL 200 MG/2 ML VIAL IVPB SCH (09:06)
[2023-04-26] MEDS ORDERED: NAPH,MB-DB/K PH,MBDB POWDER PACKET PO SCH (09:09)
[2023-04-26] MEDS: CEFTRIAXONE 2 GM in DEXTROSE 5%-WATER - 50 ML IVPB SCH (09:42)
[2023-04-26] MEDS ORDERED: POTASSIUM CHLORIDE ORAL LIQUID 20 MEQ/15 ML PO ONE (10:00)
[2023-04-26] MEDS ORDERED: ALBUTEROL SO4 HFA INHALER IH PRN (11:23)
[2023-04-26] MEDS: LORazepam 2 MG/ML SDV VIAL IVPUSH PRN ×5 (11:28→23:33)
[2023-04-26] MEDS ORDERED: FLUTICASONE/UMECLIDIN/VILANTER(200-62.5-25 TRELEGY ELLIPTA) INAHLER IH SCH (12:15)
[2023-04-26] MEDS ORDERED: QUEtiapine FUMARATE 25 MG TABLET PO SCH (22:00)
[2023-04-27] MEDS ORDERED: ALBUTEROL SO4 HFA INHALER IH PRN (00:08)
[2023-04-27] MEDS ORDERED: LORazepam 2 MG/ML SDV VIAL IVPUSH PRN (00:08)
[2023-04-27] MEDS ORDERED: SODIUM CHLORIDE IVPB SCH ×2 (01:30→07:38)
[2023-04-27] MEDS ORDERED: FOSPHENYTOIN SODIUM IVPB SCH ×2 (01:30→07:38)
[2023-04-27] MEDS: LEVOTHYROXINE NA 25 MCG TABLET (FP) PO SCH (06:26)
[2023-04-27 09:09] LABS: BASO % 0.9 % (0-2.0); EOS % 2.6 % (0-4.5); HEMATOCRIT 38.3 % (35.4-49); HEMOGLOBIN 13.3 GM/dL (11.7-16.9); LYMPH % 16.5 % (8-40); MCH 32.8 pg (25.7-33.7); MCHC 34.8 g/dl (32.0-35.9); MEAN CELL VOLUME 94.4 fl (80-96); MEAN PLT VOLUME 7.7 fl (7.5-11.1); MONO % 8.8 % (3.8-10.2); NEUT % 71.2 % (42.8-82.8); PLATELET COUNT 332 10^3/uL (134-434); RBC 4.05 M/mm3 (4.00-5.60); WHITE BLOOD COUNT 11.4 K/mm3 (4.0-10.0)
[2023-04-27 09:38] LABS: ALBUMIN 2.8 g/dl (3.4-5.0); BILIRUBIN,TOTAL 0.7 mg/dL (0.2-1); CALCIUM 8.9 mg/dL (8.5-10.1); CREATININE 0.9 mg/dL (0.55-1.3); MAGNESIUM 2.3 mg/dL (1.8-2.4); PHOSPHOROUS 2.4 mg/dL (2.5-4.9); POTASSIUM 3.3 mmol/L (3.5-5.1); TOT PROT 7.1 g/dl (6.4-8.2)
[2023-04-27] MEDS ORDERED: FUROSEMIDE 40 MG/4 ML INJECTABLE VIAL IVPUSH SCH (10:00)
[2023-04-27] MEDS ORDERED: FLUTICASONE/UMECLIDIN/VILANTER(200-62.5-25 TRELEGY ELLIPTA) INAHLER IH SCH (10:00)
[2023-04-27] MEDS ORDERED: ESCITALOPRAM OXALATE 20 MG TABLET PO SCH (10:00)
[2023-04-27] MEDS ORDERED: THIAMINE HCL 200 MG/2 ML VIAL IVPB SCH (10:00)
[2023-04-27] MEDS ORDERED: PANTOPRAZOLE SODIUM 40 MG VIAL IVPUSH SCH (10:00)
[2023-04-27] MEDS ORDERED: CEFTRIAXONE 2 GM in DEXTROSE 5%-WATER - 50 ML IVPB SCH (10:00)
[2023-04-27] MEDS: lamoTRIgine 25 MG TABLET PO SCH ×2 (10:31→22:07)
[2023-04-27] MEDS: ENOXAPARIN NA (PORCINE) 40 MG/0.4 ML DISP.SYRIN SQ SCH (10:31)
[2023-04-27] MEDS: NAPH,MB-DB/K PH,MBDB POWDER PACKET PO SCH (10:31)
[2023-04-27] MEDS: ESCITALOPRAM OXALATE 20 MG TABLET PO SCH (10:32)
[2023-04-27] MEDS: FOLIC ACID 1 MG TABLET (FP) PO SCH (10:32)
[2023-04-27] MEDS: FLUTICASONE/UMECLIDIN/VILANTER(200-62.5-25 TRELEGY ELLIPTA) INAHLER IH SCH (15:28)
[2023-04-27] MEDS: POTASSIUM CHLORIDE TABS 20 MEQ TABLET.ER (FP) PO SCH (15:28)
[2023-04-27] MEDS: PHENYTOIN NA EXTENDED 100 MG CAPSULE (FP) PO SCH ×2 (15:30→22:08)
[2023-04-27] MEDS ORDERED: LORazepam 2 MG TABLET PO PRN (19:04)
[2023-04-27] MEDS: LORazepam 1 MG TABLET PO PRN (19:14)
[2023-04-27] MEDS ORDERED: CHLORHEXIDINE GLUCONATE 4% CLEANSER FOR DECOLONIZATION TP SCH (22:00)
[2023-04-27] MEDS ORDERED: ATORVASTATIN CA 20 MG TABLET (FP) PO SCH (22:00)
[2023-04-27] MEDS: CEFUROXIME AXETIL 500 MG TABLET PO SCH (22:07)
[2023-04-27] MEDS: QUEtiapine FUMARATE 25 MG TABLET PO SCH (22:08)
[2023-04-27] MEDS: ATORVASTATIN CA 20 MG TABLET (FP) PO SCH (22:08)
[2023-04-27] MEDS: THIAMINE HCL 100 MG TABLET (FP) PO SCH (22:08)
[2023-04-28] MEDS: PHENYTOIN NA EXTENDED 100 MG CAPSULE (FP) PO SCH ×3 (05:58→21:57)
[2023-04-28] MEDS: LEVOTHYROXINE NA 25 MCG TABLET (FP) PO SCH (05:59)
[2023-04-28 08:55] LABS: POTASSIUM 3.3 mmol/L (3.5-5.1)
[2023-04-28 08:57] LABS: ALBUMIN 2.9 g/dl (3.4-5.0); BLOOD UREA NITROGEN 18.8 mg/dL (7-18); CALCIUM 8.9 mg/dL (8.5-10.1)
[2023-04-28 09:01] LABS: CREATININE 0.8 mg/dL (0.55-1.3)
[2023-04-28 09:02] LABS: BILIRUBIN,TOTAL 0.7 mg/dL (0.2-1)
[2023-04-28] MEDS: THIAMINE HCL 100 MG TABLET (FP) PO SCH ×2 (09:07→21:57)
[2023-04-28] MEDS: CEFUROXIME AXETIL 500 MG TABLET PO SCH ×2 (09:07→21:57)
[2023-04-28] MEDS: FUROSEMIDE 40 MG TABLET (FP) PO SCH (09:08)
[2023-04-28] MEDS: POTASSIUM CHLORIDE TABS 20 MEQ TABLET.ER (FP) PO SCH (09:08)
[2023-04-28] MEDS: ESCITALOPRAM OXALATE 20 MG TABLET PO SCH (09:08)
[2023-04-28] MEDS: PANTOPRAZOLE 40 MG TABLET PO SCH (09:09)
[2023-04-28] MEDS: FOLIC ACID 1 MG TABLET (FP) PO SCH (09:09)
[2023-04-28] MEDS: lamoTRIgine 25 MG TABLET PO SCH ×2 (09:09→21:57)
[2023-04-28] MEDS: ENOXAPARIN NA (PORCINE) 40 MG/0.4 ML DISP.SYRIN SQ SCH (09:10)
[2023-04-28] MEDS: NAPH,MB-DB/K PH,MBDB POWDER PACKET PO SCH (09:10)
[2023-04-28] MEDS: FLUTICASONE/UMECLIDIN/VILANTER(200-62.5-25 TRELEGY ELLIPTA) INAHLER IH SCH (09:12)
[2023-04-28 09:13] LABS: BASO % 0.9 % (0-2.0); EOS % 4.5 % (0-4.5); HEMATOCRIT 39.4 % (35.4-49); HEMOGLOBIN 13.6 GM/dL (11.7-16.9); LYMPH % 20.9 % (8-40); MCH 32.9 pg (25.7-33.7); MCHC 34.6 g/dl (32.0-35.9); MEAN PLT VOLUME 8.2 fl (7.5-11.1); MONO % 9.8 % (3.8-10.2); NEUT % 63.9 % (42.8-82.8); PLATELET COUNT 364 10^3/uL (134-434); RBC 4.14 M/mm3 (4.00-5.60); RDW 13.9 % (11.9-15.9); WHITE BLOOD COUNT 11.4 K/mm3 (4.0-10.0)
[2023-04-28] MEDS ORDERED: POTASSIUM CHLORIDE ORAL LIQUID 20 MEQ/15 ML PO ONE (10:49)
[2023-04-28] MEDS: LORazepam 1 MG TABLET PO PRN ×2 (12:07→21:58)
[2023-04-28] MEDS: ATORVASTATIN CA 20 MG TABLET (FP) PO SCH (21:57)
[2023-04-28] MEDS: QUEtiapine FUMARATE 25 MG TABLET PO SCH (21:58)
[2023-04-29] MEDS: PHENYTOIN NA EXTENDED 100 MG CAPSULE (FP) PO SCH ×2 (06:40→13:33)
[2023-04-29] MEDS: LEVOTHYROXINE NA 25 MCG TABLET (FP) PO SCH (06:40)
[2023-04-29 07:50] LABS: BASO % 0.8 % (0-2.0); EOS % 4.8 % (0-4.5); HEMATOCRIT 37.1 % (35.4-49); HEMOGLOBIN 12.3 GM/dL (11.7-16.9); LYMPH % 25.7 % (8-40); MCH 32.3 pg (25.7-33.7); MCHC 33.2 g/dl (32.0-35.9); MEAN CELL VOLUME 97.3 fl (80-96); MEAN PLT VOLUME 8.8 fl (7.5-11.1); MONO % 11.2 % (3.8-10.2); NEUT % 57.5 % (42.8-82.8); PLATELET COUNT 368 10^3/uL (134-434); RBC 3.81 M/mm3 (4.00-5.60); RDW 13.9 % (11.9-15.9); WHITE BLOOD COUNT 8.5 K/mm3 (4.0-10.0)
[2023-04-29 08:07] LABS: POTASSIUM 3.7 mmol/L (3.5-5.1)
[2023-04-29 08:12] LABS: CALCIUM 8.7 mg/dL (8.5-10.1)
[2023-04-29 08:14] LABS: CREATININE 0.8 mg/dL (0.55-1.3)
[2023-04-29 09:05] VITALS: RESP 18
[2023-04-29] MEDS: ESCITALOPRAM OXALATE 20 MG TABLET PO SCH (09:27)
[2023-04-29] MEDS: PANTOPRAZOLE 40 MG TABLET PO SCH (09:27)
[2023-04-29] MEDS: CEFUROXIME AXETIL 500 MG TABLET PO SCH (09:27)
[2023-04-29] MEDS: FUROSEMIDE 40 MG TABLET (FP) PO SCH (09:27)
[2023-04-29] MEDS: FOLIC ACID 1 MG TABLET (FP) PO SCH (09:27)
[2023-04-29] MEDS: POTASSIUM CHLORIDE TABS 20 MEQ TABLET.ER (FP) PO SCH (09:27)
[2023-04-29] MEDS: lamoTRIgine 25 MG TABLET PO SCH (09:27)
[2023-04-29] MEDS: THIAMINE HCL 100 MG TABLET (FP) PO SCH (09:27)
[2023-04-29] MEDS: FLUTICASONE/UMECLIDIN/VILANTER(200-62.5-25 TRELEGY ELLIPTA) INAHLER IH SCH (09:28)
[2023-04-29] MEDS: NAPH,MB-DB/K PH,MBDB POWDER PACKET PO SCH (09:28)
[2023-04-29] MEDS: ENOXAPARIN NA (PORCINE) 40 MG/0.4 ML DISP.SYRIN SQ SCH (09:28)
[2023-04-29 13:42] VITALS: BP 134/68; PULSE 83; TEMP 98.8
== END 2023-04-29 17:20 | disposition home or self-care (01) | DRG 53 ==
LOC: JER 10:39 → JERBED 11:54 → JICU 14:01 → J7W 04-26 15:47
PROVIDERS: ADMIT Internal Medicine Pulmonary Disease; ATTEND Family Medicine
PROC: 5A1955Z Respiratory Ventilation, Greater than 96 Consecutive Hours (ICD-10-PCS; principal; 2023-04-19)
PROC: 0BH17EZ Insertion of Endotracheal Airway into Trachea, Via Natural or Artificial Opening (ICD-10-PCS; 2023-04-19)
PROC: 02HV33Z Insertion of Infusion Device into Superior Vena Cava, Percutaneous Approach (ICD-10-PCS; 2023-04-23)
PROC: B548ZZA Ultrasonography of Superior Vena Cava, Guidance (ICD-10-PCS; 2023-04-23)
PROC: 4A10X4Z Monitoring of Central Nervous Electrical Activity, External Approach (ICD-10-PCS; 2023-04-23)
DX: G40.901 Epilepsy, unspecified, not intractable, with status epilepticus (principal); E11.9 Type 2 diabetes mellitus without complications; J69.0 Pneumonitis due to inhalation of food and vomit; F10.230 Alcohol dependence with withdrawal, uncomplicated; F10.220 Alcohol dependence with intoxication, uncomplicated; J44.9 Chronic obstructive pulmonary disease, unspecified; G47.33 Obstructive sleep apnea (adult) (pediatric); E03.9 Hypothyroidism, unspecified; F32.A Depression, unspecified; J96.02 Acute respiratory failure with hypercapnia; J96.01 Acute respiratory failure with hypoxia; R74.01 Elevation of levels of liver transaminase levels; J45.901 Unspecified asthma with (acute) exacerbation; K76.0 Fatty (change of) liver, not elsewhere classified; E66.01 Morbid (severe) obesity due to excess calories; F41.9 Anxiety disorder, unspecified; Z79.84 Long term (current) use of oral hypoglycemic drugs; J98.11 Atelectasis
CPT/HCPCS: 36415; 36600; 70450-TC; 71045-TC-FY; 72125-TC; 80048; 80053; 80076; 80177; 80185; 80186; 80307; 81003; 82140; 82550; 82553; 82803; 82962; 83605; 83735; 83880; 84100; 84439; 84443; 84484; 85025; 85610; 85730; 86850; 86900; 86901; 87040; 87070; 87077; 87086; 87186; 87205; 93005; 93010; 93306-TC; 93970-TC; 94002; 94010; 94640; 94660; 95816; 97116-GP; 97161-GP; 99285-25

== ENCOUNTER 2023-07-31 03:45 | Emergency (ER) | payer OTHER ==
[2023-07-31 03:54] VITALS: TEMP 99; BMI 40.3
[2023-07-31 06:10] LABS: POTASSIUM 4.4 mmol/L (3.5-5.1)
[2023-07-31 06:13] LABS: ALBUMIN 3.4 g/dl (3.4-5.0); BLOOD UREA NITROGEN 15.4 mg/dL (7-18); CALCIUM 8.1 mg/dL (8.5-10.1)
[2023-07-31 06:18] LABS: BILIRUBIN,TOTAL 0.3 mg/dL (0.2-1); TOT PROT 7.3 g/dl (6.4-8.2)
[2023-07-31] MEDS ORDERED: ALPRAZolam 0.25 MG TABLET PO ONE (06:18)
[2023-07-31 06:21] LABS: N-TERMINAL BNP 7.2 pg/ml (5-125)
[2023-07-31] MEDS ORDERED: ALPRAZolam 0.25 MG TABLET ONE (06:23)
[2023-07-31 06:34] LABS: BASO % 0.5 % (0-2.0); EOS % 1.3 % (0-4.5); HEMATOCRIT 51.6 % (35.4-49); HEMOGLOBIN 17.7 GM/dL (11.7-16.9); LYMPH % 31.2 % (8-40); MCH 33.1 pg (25.7-33.7); MCHC 34.3 g/dl (32.0-35.9); MEAN CELL VOLUME 96.4 fl (80-96); MEAN PLT VOLUME 8.5 fl (7.5-11.1); MONO % 8.5 % (3.8-10.2); NEUT % 58.5 % (42.8-82.8); PLATELET COUNT 287 10^3/uL (134-434); RBC 5.35 M/mm3 (4.00-5.60); RDW 13.4 % (11.9-15.9); WHITE BLOOD COUNT 10.8 K/mm3 (4.0-10.0)
[2023-07-31] MEDS ORDERED: SODIUM CHLORIDE 1,000 ML IV STA (06:54)
[2023-07-31 07:30] LABS: LACTIC ACID 2.9 mmol/L (0.4-2.0)
[2023-07-31 10:38] VITALS: BP 156/85; PULSE 102; RESP 15
[2023-07-31] MEDS ORDERED: PHENYTOIN SODIUM 250 MG/5 ML VIAL IVPB ONE (11:31)
[2023-07-31] MEDS ORDERED: FOSPHENYTOIN SODIUM 100 MG/2 ML VIAL IVPB ONE (11:46)
[2023-07-31] MEDS ORDERED: FOSPHENYTOIN SODIUM 100 MG/2 ML VIAL ONE (11:48)
== END 2023-07-31 12:45 | disposition home or self-care (01) ==
LOC: JER 03:45
PROC: 3E033GC Introduction of Other Therapeutic Substance into Peripheral Vein, Percutaneous Approach (ICD-10-PCS; principal; 2023-07-31)
PROC: 3E033GC Introduction of Other Therapeutic Substance into Peripheral Vein, Percutaneous Approach (ICD-10-PCS; 2023-07-31)
PROC: 3E0337Z Introduction of Electrolytic and Water Balance Substance into Peripheral Vein, Percutaneous Approach (ICD-10-PCS; 2023-07-31)
DX: F10.20 Alcohol dependence, uncomplicated (principal); R55 Syncope and collapse; W19.XXXA Unspecified fall, initial encounter; Y90.8 Blood alcohol level of 240 mg/100 ml or more
CPT/HCPCS: 36415; 70450-TC; 71045-TC-FY; 72125-TC; 80053; 80185; 80307; 82962; 83605; 83690; 83735; 83880; 84484; 85025; 99285-25

== ENCOUNTER 2024-04-18 01:52 | Inpatient (IN) | payer OTHER ==
[2024-04-18] MEDS ORDERED: MAGNESIUM SULFATE IN WATER 2 GM/50 ML IVPB IVPB ONE (02:00)
[2024-04-18] MEDS: MAGNESIUM SULF 50% (8.12 MEQ/2 ML-1 GM VIAL) IVPB ONE (02:00)
[2024-04-18] MEDS ORDERED: methylPREDNISolone NA SUCC 125 MG/2 ML VIAL ONE (02:00)
[2024-04-18] MEDS: methylPREDNISolone NA SUCC 125 MG/2 ML VIAL IVPUSH ONE (02:00)
[2024-04-18] MEDS ORDERED: ALBUTEROL SO4 2.5/IPRATROPIUM 0.5 INH SOL 3 ML VIAL.NEB. NEB SCH (02:00)
[2024-04-18] MEDS ORDERED: morphine SULFATE 4 MG/ML VIAL ONE (02:11)
[2024-04-18] MEDS: ALBUTEROL SO4 2.5/IPRATROPIUM 0.5 INH SOL 3 ML VIAL.NEB. NEB SCH ×2 (02:15→09:20)
[2024-04-18 02:16] LABS: BASO % 0.8 % (0-2.0); EOS % 1.5 % (0-4.5); HEMATOCRIT 47.3 % (35.4-49); HEMOGLOBIN 16.2 GM/dL (11.7-16.9); LYMPH % 32.5 % (8-40); MCH 33.1 pg (25.7-33.7); MCHC 34.3 g/dl (32.0-35.9); MEAN CELL VOLUME 96.5 fl (80-96); MEAN PLT VOLUME 7.7 fl (7.5-11.1); MONO % 8.1 % (3.8-10.2); NEUT % 57.1 % (42.8-82.8); PLATELET COUNT 232 10^3/uL (134-434); RBC 4.91 M/mm3 (4.00-5.60); RDW 15.5 % (11.9-15.9); WHITE BLOOD COUNT 15.5 K/mm3 (4.0-10.0)
[2024-04-18 02:25] LABS: VENOUS BASE EXCESS -4.9 mmol/L (-2-2); VENOUS O2 SATURATION 99.2 % (70-80); VENOUS PCO2 41.3 mmHg (38-52); VENOUS PH 7.321 (7.310-7.410)
[2024-04-18] MEDS: morphine CARPU-JECT 4 MG/1 ML DISP.SYRIN IVPUSH ONE (02:26)
[2024-04-18 02:34] LABS: POTASSIUM 4.5 mmol/L (3.5-5.1)
[2024-04-18 02:37] LABS: ALBUMIN 3.4 g/dl (3.4-5.0); BLOOD UREA NITROGEN 11.9 mg/dL (7-18); CALCIUM 8.9 mg/dL (8.5-10.1)
[2024-04-18 02:42] LABS: BILIRUBIN,TOTAL 0.4 mg/dL (0.2-1); TOT PROT 7.7 g/dl (6.4-8.2)
[2024-04-18 02:47] LABS: CREATININE 1.1 mg/dL (0.55-1.3); N-TERMINAL BNP 68.7 pg/ml (5-125)
[2024-04-18] MEDS ORDERED: PHENYTOIN NA EXTENDED 100 MG CAPSULE (FP) ONE (04:01)
[2024-04-18] MEDS: PHENYTOIN NA EXTENDED 100 MG CAPSULE (FP) PO ONE (04:06)
[2024-04-18] MEDS: metFORMIN HCL 500 MG TABLET (FP) PO SCH (06:46)
[2024-04-18] MEDS: methylPREDNISolone NA SUCC 40 MG/1 ML VIAL IVPUSH SCH (10:06)
[2024-04-18] MEDS: lamoTRIgine 25 MG TABLET PO SCH ×2 (10:07→21:20)
[2024-04-18] MEDS: FUROSEMIDE 40 MG/4 ML INJECTABLE VIAL IVPUSH SCH (10:07)
[2024-04-18] MEDS: amLODIPine BESYLATE 5 MG TABLET (FP) PO SCH (10:07)
[2024-04-18] MEDS: MULTIVITAMINS (DAILY MVI) TABLET (FP) PO SCH (10:07)
[2024-04-18] MEDS: THIAMINE 100 MG TABLET PO SCH (10:07)
[2024-04-18] MEDS: hydrOXYzine PAMOATE 25 MG CAPSULE (FP) PO PRN (10:13)
[2024-04-18] MEDS: FLUTICASONE/UMECLIDIN/VILANTER(200-62.5-25 TRELEGY ELLIPTA) INAHLER IH SCH (14:08)
[2024-04-18] MEDS: BUDESONIDE/FORMETEROL FUMARATE 160/4.5 mcg INHALER IH SCH (14:56)
[2024-04-18] MEDS: LEVALBUTEROL HCL 0.63 MG/3 ML VIAL.NEB. IH ONE (17:33)
[2024-04-18] MEDS ORDERED: PATIENT'S OWN MEDICATION (NON-FORMULARY) (Hydroxyzine Hcl [Hydroxyzine Hcl] 10 MG Tablet) PO PRN (17:38)
[2024-04-18] MEDS ORDERED: QUEtiapine FUMARATE 25 MG TABLET PO PRN (17:38)
[2024-04-18 18:19] VITALS: BMI 46.8
[2024-04-18] MEDS: PHENYTOIN NA EXTENDED 100 MG CAPSULE (FP) PO SCH (21:19)
[2024-04-18] MEDS: MONTELUKAST NA 10 MG TABLET PO SCH (21:20)
[2024-04-18] MEDS: QUEtiapine FUMARATE 50 MG TABLET PO SCH (21:20)
[2024-04-19 07:50] LABS: BASO % 0.4 % (0-2.0); EOS % 0.1 % (0-4.5); HEMATOCRIT 43.7 % (35.4-49); HEMOGLOBIN 14.5 GM/dL (11.7-16.9); LYMPH % 9.5 % (8-40); MCH 32.6 pg (25.7-33.7); MCHC 33.2 g/dl (32.0-35.9); MEAN CELL VOLUME 98.2 fl (80-96); MEAN PLT VOLUME 8.2 fl (7.5-11.1); MONO % 4.3 % (3.8-10.2); NEUT % 85.7 % (42.8-82.8); PLATELET COUNT 176 10^3/uL (134-434); RBC 4.45 M/mm3 (4.00-5.60); RDW 14.9 % (11.9-15.9); WHITE BLOOD COUNT 13.6 K/mm3 (4.0-10.0)
[2024-04-19 08:16] LABS: CALCIUM 8.4 mg/dL (8.5-10.1)
[2024-04-19 08:17] LABS: BILIRUBIN,TOTAL 0.4 mg/dL (0.2-1); TOT PROT 6.7 g/dl (6.4-8.2)
[2024-04-19] MEDS: ESCITALOPRAM OXALATE 20 MG TABLET PO SCH (09:36)
[2024-04-19] MEDS ORDERED: PATIENT'S OWN MEDICATION (NON-FORMULARY) (Cariprazine Hcl [Vraylar] 4.5 MG Capsule) PO SCH (10:00)
[2024-04-19] MEDS: GABAPENTIN 300 MG CAPSULE PO SCH (11:33)
[2024-04-19] MEDS: ALBUTEROL SO4 HFA INHALER IH PRN (12:40)
[2024-04-19] MEDS: ZOLPIDEM TARTRATE 5 MG TABLET PO PRN (21:46)
[2024-04-20] MEDS ORDERED: ALBUTEROL SO4 0.083% IH SOL 2.5 MG/3 ML VIAL.NEB. NEB PRN (10:29)
[2024-04-20] MEDS: INSULIN ASPART SLIDING SCALE (NOVOLOG) 1 VIAL SQ SCH (17:34)
[2024-04-21] MEDS: PANTOPRAZOLE 40 MG TABLET PO ONE (06:08)
[2024-04-21 08:32] LABS: POTASSIUM 4.4 mmol/L (3.5-5.1)
[2024-04-21 08:34] LABS: CALCIUM 9.2 mg/dL (8.5-10.1)
[2024-04-21 08:35] LABS: ALBUMIN 3.1 g/dl (3.4-5.0); BLOOD UREA NITROGEN 10.6 mg/dL (7-18)
[2024-04-21 08:38] LABS: CREATININE 0.9 mg/dL (0.55-1.3)
[2024-04-21 08:40] LABS: BILIRUBIN,TOTAL 0.3 mg/dL (0.2-1)
[2024-04-21] MEDS: LEVOTHYROXINE NA 25 MCG TABLET (FP) PO SCH (11:59)
[2024-04-21] MEDS: PANTOPRAZOLE 40 MG TABLET PO SCH (12:00)
[2024-04-21] MEDS: LOSARTAN POTASSIUM 50 MG TABLET PO SCH (12:00)
[2024-04-21 14:31] VITALS: BP 129/97; PULSE 88; RESP 17; TEMP 98.8
== END 2024-04-21 13:15 | disposition home or self-care (01) | DRG 141 ==
LOC: JER 01:52 → JERBED 04:39 → J4W 06:25 → OBSVTOIN 04-20 10:08
PROVIDERS: ADMIT Internal Medicine; ATTEND Family Medicine
DX: J45.901 Unspecified asthma with (acute) exacerbation (principal); J96.01 Acute respiratory failure with hypoxia; E11.9 Type 2 diabetes mellitus without complications; I50.9 Heart failure, unspecified; Z68.42 Body mass index [BMI] 45.0-49.9, adult; E03.9 Hypothyroidism, unspecified; E78.00 Pure hypercholesterolemia, unspecified; E78.5 Hyperlipidemia, unspecified; F10.239 Alcohol dependence with withdrawal, unspecified; F41.8 Other specified anxiety disorders; G40.909 Epilepsy, unspecified, not intractable, without status epilepticus; G47.33 Obstructive sleep apnea (adult) (pediatric); E66.9 Obesity, unspecified
CPT/HCPCS: 0241U-QW; 36415; 71045-TC-FY; 80053; 80185; 80307; 82803; 82962; 83735; 83880; 84484; 85025; 87040; 93005; 93010; 93306-TC; 94640; 94660; 99291; G0378

== ENCOUNTER 2024-06-10 22:19 | Inpatient (IN) | payer OTHER ==
[2024-06-10 23:12] LABS: BASO % 0.7 % (0-2.0); EOS % 1.8 % (0-4.5); HEMATOCRIT 45.6 % (35.4-49); HEMOGLOBIN 15.6 GM/dL (11.7-16.9); LYMPH % 30.5 % (8-40); MCH 33.4 pg (25.7-33.7); MCHC 34.3 g/dl (32.0-35.9); MEAN CELL VOLUME 97.3 fl (80-96); MEAN PLT VOLUME 7.6 fl (7.5-11.1); MONO % 7.8 % (3.8-10.2); NEUT % 59.2 % (42.8-82.8); PLATELET COUNT 321 10^3/uL (134-434); RBC 4.68 M/mm3 (4.00-5.60); RDW 14.8 % (11.9-15.9); WHITE BLOOD COUNT 13.8 K/mm3 (4.0-10.0)
[2024-06-10 23:14] LABS: VENOUS BASE EXCESS -3.3 mmol/L (-2-2); VENOUS O2 SATURATION 69.4 % (70-80); VENOUS PCO2 46.2 mmHg (38-52); VENOUS PH 7.318 (7.310-7.410)
[2024-06-10 23:18] LABS: INR 0.98 (0.83-1.09); PROTHROMBIN TIME (PATIENT) 11.3 SEC (9.7-13.0)
[2024-06-10] MEDS ORDERED: PHENYTOIN SODIUM 250 MG/5 ML VIAL IVPB ONE (23:19)
[2024-06-10 23:21] LABS: ACTIVATED PTT 26.2 SECONDS (25.2-36.5)
[2024-06-10] MEDS ORDERED: ALBUTEROL SO4 2.5/IPRATROPIUM 0.5 INH SOL 3 ML VIAL.NEB. NEB ONE (23:22)
[2024-06-10] MEDS ORDERED: PHENYTOIN SODIUM IVPB ONE (23:30)
[2024-06-10] MEDS ORDERED: SODIUM CHLORIDE IVPB ONE (23:30)
[2024-06-10 23:32] LABS: POTASSIUM 4.6 mmol/L (3.5-5.1)
[2024-06-10 23:34] LABS: CALCIUM 8.6 mg/dL (8.5-10.1)
[2024-06-10 23:35] LABS: ALBUMIN 3.8 g/dl (3.4-5.0); BLOOD UREA NITROGEN 14.4 mg/dL (7-18)
[2024-06-10 23:38] LABS: CREATININE 1.1 mg/dL (0.55-1.3)
[2024-06-10 23:39] LABS: BILIRUBIN,TOTAL 0.4 mg/dL (0.2-1); TOT PROT 8.2 g/dl (6.4-8.2)
[2024-06-10] MEDS ORDERED: FOSPHENYTOIN SODIUM IVPB ONE (23:45)
[2024-06-10] MEDS ORDERED: WATER IVPB ONE (23:45)
[2024-06-10] MEDS ORDERED: DEXTROSE 5% IVPB ONE (23:45)
[2024-06-10 23:56] LABS: LACTIC ACID 3.6 mmol/L (0.4-2.0)
[2024-06-11] MEDS ORDERED: KETOROLAC TROMETHAMINE 15 MG/ML VIAL ONE (00:37)
[2024-06-11] MEDS: KETOROLAC TROMETHAMINE 15 MG/ML VIAL IVPUSH ONE (00:48)
[2024-06-11] MEDS: FOSPHENYTOIN SODIUM IVPB ONE (00:48)
[2024-06-11] MEDS: SODIUM CHLORIDE IVPB ONE (00:48)
[2024-06-11 02:35] LABS: EOS % 2.9 % (0-4.5); HEMOGLOBIN 14.4 GM/dL (11.7-16.9); LYMPH % 33.4 % (8-40); MCH 33.1 pg (25.7-33.7); MCHC 34.3 g/dl (32.0-35.9); MEAN CELL VOLUME 96.7 fl (80-96); MEAN PLT VOLUME 7.3 fl (7.5-11.1); MONO % 7.5 % (3.8-10.2); NEUT % 55.2 % (42.8-82.8); PLATELET COUNT 276 10^3/uL (134-434); RBC 4.34 M/mm3 (4.00-5.60); RDW 14.6 % (11.9-15.9); WHITE BLOOD COUNT 13.1 K/mm3 (4.0-10.0)
[2024-06-11 03:14] LABS: LACTIC ACID 3.9 mmol/L (0.4-2.0)
[2024-06-11] MEDS: SODIUM CHLORIDE 0.9% 500 ML INFUS.BAG IV ONE (03:42)
[2024-06-11] MEDS: INSULIN ASPART SLIDING SCALE (NOVOLOG) 1 VIAL SQ SCH (07:20)
[2024-06-11 07:31] LABS: BASO % 1.1 % (0-2.0); EOS % 3.4 % (0-4.5); HEMATOCRIT 43.8 % (35.4-49); HEMOGLOBIN 14.8 GM/dL (11.7-16.9); MCHC 33.8 g/dl (32.0-35.9); MEAN CELL VOLUME 97.4 fl (80-96); MEAN PLT VOLUME 7.7 fl (7.5-11.1); MONO % 7.3 % (3.8-10.2); NEUT % 54.2 % (42.8-82.8); PLATELET COUNT 282 10^3/uL (134-434); RDW 14.5 % (11.9-15.9); WHITE BLOOD COUNT 12.1 K/mm3 (4.0-10.0)
[2024-06-11 07:45] LABS: POTASSIUM 4.3 mmol/L (3.5-5.1)
[2024-06-11 07:50] LABS: BLOOD UREA NITROGEN 17.2 mg/dL (7-18); CALCIUM 7.9 mg/dL (8.5-10.1)
[2024-06-11 07:54] LABS: CREATININE 1.1 mg/dL (0.55-1.3)
[2024-06-11] MEDS ORDERED: hydrOXYzine PAMOATE 25 MG CAPSULE (FP) PO PRN (08:27)
[2024-06-11] MEDS ORDERED: LEVOTHYROXINE NA 25 MCG TABLET (FP) PO SCH (10:00)
[2024-06-11] MEDS ORDERED: ATORVASTATIN CA 20 MG TABLET (FP) PO SCH (10:15)
[2024-06-11] MEDS: POTASSIUM CHLORIDE TABS 20 MEQ TABLET.ER (FP) PO SCH (10:49)
[2024-06-11] MEDS: HEPARIN NA (PORCINE) 5,000 UNITS/ML 1ML VIAL SQ SCH (10:49)
[2024-06-11] MEDS: FOLIC ACID 1 MG TABLET (FP) PO SCH (10:49)
[2024-06-11] MEDS: ESCITALOPRAM OXALATE 20 MG TABLET PO SCH (10:49)
[2024-06-11] MEDS: FUROSEMIDE 40 MG TABLET (FP) PO SCH (10:49)
[2024-06-11] MEDS: amLODIPine BESYLATE 5 MG TABLET (FP) PO SCH (10:49)
[2024-06-11] MEDS: QUEtiapine FUMARATE 25 MG TABLET PO SCH ×2 (10:50→22:57)
[2024-06-11] MEDS: THIAMINE 100 MG TABLET PO SCH (10:50)
[2024-06-11] MEDS: PANTOPRAZOLE 40 MG TABLET PO SCH (10:50)
[2024-06-11] MEDS: FAMOTIDINE 20 MG TABLET PO SCH (10:50)
[2024-06-11] MEDS: lamoTRIgine 25 MG TABLET PO SCH (10:51)
[2024-06-11] MEDS: PHENYTOIN NA EXTENDED 100 MG CAPSULE (FP) PO SCH (10:51)
[2024-06-11] MEDS: ALBUTEROL SO4 2.5/IPRATROPIUM 0.5 INH SOL 3 ML VIAL.NEB. NEB SCH (12:05)
[2024-06-11] MEDS ORDERED: ALBUTEROL SO4 2.5/IPRATROPIUM 0.5 INH SOL 3 ML VIAL.NEB. NEB ONE (12:05)
[2024-06-11 15:25] VITALS: BMI 45.6
[2024-06-11] MEDS: ATORVASTATIN CA 20 MG TABLET (FP) PO SCH (22:57)
[2024-06-11] MEDS ORDERED: ALBUTEROL SO4 2.5/IPRATROPIUM 0.5 INH SOL 3 ML VIAL.NEB. NEB PRN (23:00)
[2024-06-12] MEDS: LEVOTHYROXINE NA 25 MCG TABLET (FP) PO SCH (06:10)
[2024-06-12] MEDS: ATORVASTATIN CA 10 MG TABLET (FP) PO SCH (08:16)
[2024-06-12 09:14] VITALS: BP 116/82; PULSE 91; RESP 22; TEMP 99
[2024-06-12 11:06] LABS: MAGNESIUM 2.3 mg/dL (1.8-2.4)
[2024-06-12 11:10] LABS: PHOSPHOROUS 3.1 mg/dL (2.5-4.9)
== END 2024-06-12 11:39 | disposition home or self-care (01) | DRG 53 ==
LOC: JER 22:19 → JERBED 06-11 03:21 → J5S 06-11 14:30
PROVIDERS: ADMIT Internal Medicine; ATTEND Internal Medicine
DX: G40.909 Epilepsy, unspecified, not intractable, without status epilepticus (principal); I10 Essential (primary) hypertension; E11.9 Type 2 diabetes mellitus without complications; E03.9 Hypothyroidism, unspecified; G47.33 Obstructive sleep apnea (adult) (pediatric); G43.909 Migraine, unspecified, not intractable, without status migrainosus; G56.00 Carpal tunnel syndrome, unspecified upper limb; F43.10 Post-traumatic stress disorder, unspecified; F32.A Depression, unspecified; F10.10 Alcohol abuse, uncomplicated; E78.5 Hyperlipidemia, unspecified; R91.1 Solitary pulmonary nodule
CPT/HCPCS: 36415; 70450-TC; 71045-TC-FY; 73030-TC-RT-FY; 74177-TC; 80048; 80053; 80175; 80185; 82140; 82550; 82553; 82607; 82803; 82962; 83605; 83690; 83735; 84100; 84484; 85025; 85610; 85730; 86850; 86900; 86901; 93005; 93010; 94640; 94660; 99285-25; J1644

== ENCOUNTER 2024-08-04 23:21 | Inpatient (IN) | payer OTHER ==
[2024-08-04] MEDS ORDERED: morphine SULFATE 4 MG/ML VIAL ONE (23:55)
[2024-08-05] MEDS: morphine CARPU-JECT 4 MG/1 ML DISP.SYRIN IVPUSH ONE (00:04)
[2024-08-05] MEDS: MAGNESIUM SULFATE IN WATER 2 GM/50 ML IVPB IVPB ONE (00:04)
[2024-08-05] MEDS: methylPREDNISolone NA SUCC 125 MG/2 ML VIAL IVPB ONE (00:04)
[2024-08-05] MEDS: ALBUTEROL SO4 2.5/IPRATROPIUM 0.5 INH SOL 3 ML VIAL.NEB. NEB SCH (00:04)
[2024-08-05 00:09] LABS: BASO % 0.5 % (0-2.0); EOS % 4.8 % (0-4.5); HEMATOCRIT 41.1 % (35.4-49); HEMOGLOBIN 14.2 GM/dL (11.7-16.9); LYMPH % 24.2 % (8-40); MCH 32.8 pg (25.7-33.7); MCHC 34.5 g/dl (32.0-35.9); MEAN CELL VOLUME 95.2 fl (80-96); MONO % 8.4 % (3.8-10.2); NEUT % 62.1 % (42.8-82.8); PLATELET COUNT 178 10^3/uL (134-434); RBC 4.32 M/mm3 (4.00-5.60); RDW 14.8 % (11.9-15.9); WHITE BLOOD COUNT 7.7 K/mm3 (4.0-10.0)
[2024-08-05 00:16] LABS: VENOUS BASE EXCESS -1.9 mmol/L (-2-2); VENOUS O2 SATURATION 88.1 % (70-80); VENOUS PCO2 44.9 mmHg (38-52); VENOUS PH 7.345 (7.310-7.410)
[2024-08-05 00:29] LABS: POTASSIUM 3.7 mmol/L (3.5-5.1)
[2024-08-05 00:31] LABS: BLOOD UREA NITROGEN 12.9 mg/dL (7-18)
[2024-08-05 00:36] LABS: BILIRUBIN,TOTAL 0.2 mg/dL (0.2-1); TOT PROT 6.5 g/dl (6.4-8.2)
[2024-08-05 00:39] LABS: N-TERMINAL BNP 30.4 pg/ml (5-125)
[2024-08-05] MEDS ORDERED: ACETAMINOPHEN INJECTION 100 ML ONE (01:31)
[2024-08-05] MEDS ORDERED: THIAMINE HCL 200 MG/2 ML VIAL ONE (01:31)
[2024-08-05] MEDS: THIAMINE HCL 200 MG/2 ML VIAL IVPB ONE (01:42)
[2024-08-05] MEDS: ACETAMINOPHEN 1000 MG/100 ML BAG IVPB ONE (01:42)
[2024-08-05] MEDS: SODIUM CHLORIDE 0.9% 500 ML INFUS.BAG IV ONE (01:43)
[2024-08-05 02:14] LABS: LACTIC ACID 2.5 mmol/L (0.4-2.0)
[2024-08-05] MEDS: CEPHALEXIN MONOHYDRATE 500 MG CAPSULE (UD) PO ONE (04:45)
[2024-08-05] MEDS ORDERED: MORPHINE SULFATE 2 MG/ML SYRINGE ONE (05:44)
[2024-08-05] MEDS: MORPHINE SULFATE 2 MG/ML SYRINGE IVPUSH PRN (05:47)
[2024-08-05] MEDS ORDERED: lamoTRIgine 100 MG TABLET ONE (06:12)
[2024-08-05] MEDS ORDERED: LEVOTHYROXINE NA 25 MCG TABLET (FP) ONE (06:12)
[2024-08-05] MEDS ORDERED: PANTOPRAZOLE 40 MG TABLET PO ONE (06:12)
[2024-08-05] MEDS ORDERED: CYCLOBENZAPRINE HCL 10 MG TABLET (FP) ONE (06:12)
[2024-08-05 06:15] LABS: HEMATOCRIT 42.7 % (35.4-49); HEMOGLOBIN 14.5 GM/dL (11.7-16.9); MCH 32.5 pg (25.7-33.7); MCHC 33.9 g/dl (32.0-35.9); PLATELET COUNT 169 10^3/uL (134-434); RBC 4.45 M/mm3 (4.00-5.60); RDW 14.5 % (11.9-15.9); WHITE BLOOD COUNT 7.9 K/mm3 (4.0-10.0)
[2024-08-05] MEDS: LEVOTHYROXINE NA 25 MCG TABLET (FP) PO SCH (06:24)
[2024-08-05] MEDS: PANTOPRAZOLE 40 MG TABLET PO SCH (06:24)
[2024-08-05] MEDS: CYCLOBENZAPRINE HCL 10 MG TABLET (FP) PO ONE ×2 (06:25→22:42)
[2024-08-05] MEDS: lamoTRIgine 100 MG TABLET PO SCH (06:25)
[2024-08-05] MEDS ORDERED: EMPAGLIFLOZIN (JARDIANCE) 10 MG TABLET PO SCH (07:00)
[2024-08-05] MEDS: ACETAMINOPHEN 1000 MG/100 ML BAG IVPB PRN (11:42)
[2024-08-05] MEDS: PHENYTOIN NA EXTENDED 100 MG CAPSULE (FP) PO SCH (11:42)
[2024-08-05] MEDS: THIAMINE 100 MG TABLET PO SCH (11:43)
[2024-08-05] MEDS: FOLIC ACID 1 MG TABLET (FP) PO SCH (11:43)
[2024-08-05] MEDS: methylPREDNISolone NA SUCC 40 MG/1 ML VIAL IVPUSH SCH (11:43)
[2024-08-05] MEDS: amLODIPine BESYLATE 5 MG TABLET (FP) PO SCH (11:43)
[2024-08-05] MEDS: FUROSEMIDE 40 MG TABLET (FP) PO SCH (11:43)
[2024-08-05] MEDS: ESCITALOPRAM OXALATE 20 MG TABLET PO SCH (11:44)
[2024-08-05] MEDS: EMPAGLIFLOZIN (JARDIANCE) 25 MG TABLET PO SCH (11:56)
[2024-08-05] MEDS: CEFTRIAXONE 1 GM in DEXTROSE 5%-WATER - 50 ML IVPB SCH (12:38)
[2024-08-05] MEDS: AZITHROMYCIN IVPB 500 MG/250 ML BAG IVPB ONE (12:38)
[2024-08-05] MEDS ORDERED: guaiFENesin/CODEINE 10 ML UNIT-DOSE CUPS PO PRN (13:28)
[2024-08-05] MEDS: FLUTICASONE/UMECLIDIN/VILANTER(200-62.5-25 TRELEGY ELLIPTA) INAHLER IH SCH (13:31)
[2024-08-05] MEDS: lamoTRIgine 25 MG TABLET PO SCH (13:31)
[2024-08-05] MEDS: SACUBITRIL/VALSARTAN 97 MG-103 MG TABLET PO SCH (13:31)
[2024-08-05] MEDS: FUROSEMIDE 40 MG/4 ML INJECTABLE VIAL IVPUSH ONE (14:33)
[2024-08-05] MEDS: ALPRAZolam 0.25 MG TABLET PO PRN (14:33)
[2024-08-05] MEDS: ALBUTEROL SO4 0.083% IH SOL 2.5 MG/3 ML VIAL.NEB. NEB SCH (16:43)
[2024-08-05] MEDS: INSULIN ASPART SLIDING SCALE (NOVOLOG) 1 VIAL SQ SCH (21:45)
[2024-08-05] MEDS: ATORVASTATIN CA 80 MG TABLET (FP) PO SCH (21:47)
[2024-08-05] MEDS: MONTELUKAST NA 10 MG TABLET PO SCH (21:47)
[2024-08-05] MEDS: QUEtiapine FUMARATE 50 MG TABLET PO SCH (21:47)
[2024-08-06] MEDS: chlordiazePOXIDE HCL 10 MG CAPSULE PO ONE (02:03)
[2024-08-06] MEDS: FLUTICASONE PROP 0.05% 16 GM NASAL SPRAY NS SCH (03:43)
[2024-08-06 07:05] LABS: BASO % 0.2 % (0-2.0); EOS % 0.4 % (0-4.5); HEMATOCRIT 45.5 % (35.4-49); HEMOGLOBIN 15.1 GM/dL (11.7-16.9); LYMPH % 7.6 % (8-40); MCHC 33.2 g/dl (32.0-35.9); MEAN CELL VOLUME 96.4 fl (80-96); MEAN PLT VOLUME 8.6 fl (7.5-11.1); MONO % 3.3 % (3.8-10.2); NEUT % 88.5 % (42.8-82.8); PLATELET COUNT 204 10^3/uL (134-434); RBC 4.71 M/mm3 (4.00-5.60); RDW 14.6 % (11.9-15.9); WHITE BLOOD COUNT 12.6 K/mm3 (4.0-10.0)
[2024-08-06 07:15] LABS: POTASSIUM 4.4 mmol/L (3.5-5.1)
[2024-08-06 07:20] LABS: ALBUMIN 3.3 g/dl (3.4-5.0); BLOOD UREA NITROGEN 14.2 mg/dL (7-18); CHOLESTEROL 168 mg/dL (50-200)
[2024-08-06 07:22] LABS: LDL CHOLESTEROL (ONLY SJRH) 73 mg/dL (5-100)
[2024-08-06 07:23] LABS: CREATININE 0.9 mg/dL (0.55-1.3); HDL CHOLESTEROL 78 mg/dL (40-60)
[2024-08-06 07:24] LABS: BILIRUBIN,TOTAL 0.5 mg/dL (0.2-1); TOT PROT 7.4 g/dl (6.4-8.2)
[2024-08-06] MEDS: AZITHROMYCIN IVPB 250 MG in DEXTROSE 5%-WATER - 250 ML IVPB SCH (09:38)
[2024-08-06 10:52] VITALS: RESP 18
[2024-08-06] MEDS: LORATADINE 10 MG TABLET PO SCH (12:32)
[2024-08-06] MEDS: ACETAMINOPHEN 325 MG TABLET (FP) PO PRN (12:56)
[2024-08-06 15:11] VITALS: BP 122/81; PULSE 78; TEMP 98.8
[2024-08-06 16:20] VITALS: BMI 46.5
[2024-08-06] MEDS ORDERED: predniSONE 20 MG TABLET (UD) PO SCH (22:00)
== END 2024-08-06 17:16 | disposition home or self-care (01) | DRG 140 ==
LOC: JER 23:21 → JERBED 08-05 03:33 → OBSVTOIN 08-05 03:33 → J4W 08-05 10:26
PROVIDERS: ADMIT Internal Medicine; ATTEND Internal Medicine
DX: J44.1 Chronic obstructive pulmonary disease with (acute) exacerbation (principal); J96.01 Acute respiratory failure with hypoxia; E87.20 Acidosis, unspecified; E66.01 Morbid (severe) obesity due to excess calories; Z68.42 Body mass index [BMI] 45.0-49.9, adult; I11.0 Hypertensive heart disease with heart failure; J45.901 Unspecified asthma with (acute) exacerbation; E03.9 Hypothyroidism, unspecified; E11.9 Type 2 diabetes mellitus without complications; F10.10 Alcohol abuse, uncomplicated; G47.33 Obstructive sleep apnea (adult) (pediatric); F43.10 Post-traumatic stress disorder, unspecified; F32.A Depression, unspecified; G40.909 Epilepsy, unspecified, not intractable, without status epilepticus; E78.5 Hyperlipidemia, unspecified; I10 Essential (primary) hypertension
CPT/HCPCS: 0241U-QW; 36415; 70450-TC; 70486-TC; 71045-TC-FY; 80048; 80053; 80061; 80185; 80186; 82803; 82962; 83036; 83605; 83735; 83880; 84443; 84484; 85025; 93005; 93010; 93308; 94640; 94660; 94760; 99285-25; J0131

== ENCOUNTER 2024-09-06 22:34 | Inpatient (IN) | payer OTHER ==
[2024-09-06 22:40] VITALS: BMI 48.4
[2024-09-06] MEDS ORDERED: MIDAZOLAM HCL 5 MG/1 ML Single Dose Vial ONE (23:04)
[2024-09-06] MEDS ORDERED: levETIRAcetam 500 MG/5 ML INJECTION VIAL IVPB ONE (23:17)
[2024-09-06 23:30] LABS: VENOUS PCO2 42.1 mmHg (38-52); VENOUS PH 7.298 (7.310-7.410)
[2024-09-06] MEDS: PHENYTOIN SODIUM 250 MG/5 ML VIAL IVPB ONE (23:31)
[2024-09-06] MEDS: levETIRAcetam 500 MG/5 ML INJECTION VIAL IVPB ONE (23:32)
[2024-09-06 23:33] LABS: BASO % 1.2 % (0-2.0); EOS % 7.1 % (0-4.5); HEMATOCRIT 44.5 % (35.4-49); HEMOGLOBIN 15.3 GM/dL (11.7-16.9); LYMPH % 45.4 % (8-40); MCH 32.3 pg (25.7-33.7); MCHC 34.5 g/dl (32.0-35.9); MEAN CELL VOLUME 93.6 fl (80-96); MEAN PLT VOLUME 7.6 fl (7.5-11.1); MONO % 8.6 % (3.8-10.2); NEUT % 37.7 % (42.8-82.8); PLATELET COUNT 251 10^3/uL (134-434); RBC 4.75 M/mm3 (4.00-5.60); RDW 14.2 % (11.9-15.9); WHITE BLOOD COUNT 7.8 K/mm3 (4.0-10.0)
[2024-09-07 00:01] LABS: CALCIUM 8.9 mg/dL (8.5-10.1)
[2024-09-07 00:02] LABS: ALBUMIN 3.3 g/dl (3.4-5.0); BLOOD UREA NITROGEN 15.9 mg/dL (7-18); MAGNESIUM 2.4 mg/dL (1.8-2.4)
[2024-09-07 00:05] LABS: CREATININE 1.2 mg/dL (0.55-1.3)
[2024-09-07 00:06] LABS: BILIRUBIN,TOTAL 0.2 mg/dL (0.2-1); TOT PROT 7.3 g/dl (6.4-8.2)
[2024-09-07 00:29] LABS: LACTIC ACID 2.5 mmol/L (0.4-2.0)
[2024-09-07] MEDS: lamoTRIgine 25 MG TABLET PO ONE (00:31)
[2024-09-07] MEDS: LACTATED RINGERS SOLUTION 1000 ML INFUS.BAG IV ONE (00:36)
[2024-09-07 02:58] VITALS: RESP 20
[2024-09-07 03:49] LABS: URINE APPEARANCE CLEAR; URINE BILIRUBIN NEGATIVE (NEGATIVE); URINE COLOR YELLOW; URINE GLUCOSE (UA) 3+ (NEGATIVE); URINE KETONE NEGATIVE (NEGATIVE); URINE LEUK ESTERASE NEGATIVE (NEGATIVE); URINE NITRITE NEGATIVE (NEGATIVE); URINE PROTEIN NEGATIVE (NEGATIVE); URINE UROBILINOGEN 0.2 mg/dL (0.2-1.0)
[2024-09-07 03:58] LABS: URINE AMPHETAMINES NEGATIVE (NEGATIVE); URINE BARBITURATES NEGATIVE (NEGATIVE)
[2024-09-07 03:59] LABS: COCAINE, UR NEGATIVE (NEGATIVE); METHADONE, UR NEGATIVE (NEGATIVE); OPIATES, URI NEGATIVE (NEGATIVE); PHENCYCLIDINE,URINE NEGATIVE (NEGATIVE)
[2024-09-07 04:21] LABS: URINE BENZODIAZEPINES POSITIVE (NEGATIVE)
[2024-09-07] MEDS ORDERED: LORazepam 1 MG TABLET PO PRN (04:40)
[2024-09-07] MEDS ORDERED: ALBUTEROL SO4 2.5/IPRATROPIUM 0.5 INH SOL 3 ML VIAL.NEB. NEB ONE (05:30)
[2024-09-07] MEDS ORDERED: LORazepam 1 MG TABLET ONE (05:30)
[2024-09-07] MEDS: ALBUTEROL SO4 2.5/IPRATROPIUM 0.5 INH SOL 3 ML VIAL.NEB. NEB SCH (05:32)
[2024-09-07] MEDS ORDERED: ALBUTEROL SO4 2.5/IPRATROPIUM 0.5 INH SOL 3 ML VIAL.NEB. NEB PRN (05:39)
[2024-09-07] MEDS: LORazepam 2 MG TABLET PO SCH (05:42)
[2024-09-07 07:01] LABS: HEMATOCRIT 43.2 % (35.4-49); HEMOGLOBIN 14.7 GM/dL (11.7-16.9); MCH 32.3 pg (25.7-33.7); MEAN CELL VOLUME 95.1 fl (80-96); PLATELET COUNT 211 10^3/uL (134-434); RBC 4.54 M/mm3 (4.00-5.60); RDW 14.4 % (11.9-15.9); WHITE BLOOD COUNT 5.6 K/mm3 (4.0-10.0)
[2024-09-07 07:03] LABS: POTASSIUM 3.8 mmol/L (3.5-5.1)
[2024-09-07 07:05] LABS: CALCIUM 8.3 mg/dL (8.5-10.1)
[2024-09-07 07:06] LABS: ALBUMIN 2.8 g/dl (3.4-5.0); BLOOD UREA NITROGEN 16.2 mg/dL (7-18)
[2024-09-07 07:09] LABS: PHOSPHOROUS 3.3 mg/dL (2.5-4.9)
[2024-09-07] MEDS ORDERED: LEVOTHYROXINE NA 25 MCG TABLET (FP) ONE (07:09)
[2024-09-07 07:10] LABS: BILIRUBIN,TOTAL 0.3 mg/dL (0.2-1); TOT PROT 6.5 g/dl (6.4-8.2)
[2024-09-07] MEDS: LEVOTHYROXINE NA 25 MCG TABLET (FP) PO SCH (07:11)
[2024-09-07] MEDS: INSULIN ASPART SLIDING SCALE (NOVOLOG) 1 VIAL SQ SCH (07:37)
[2024-09-07] MEDS: FOLIC ACID INJECTION - 1 MG, THIAMINE HCL 100 MG, MULTIVIT INJECTION ADULT 10 ML in SOD... IVPB ONE (09:24)
[2024-09-07] MEDS ORDERED: ASPIRIN 81 MG CHEWABLE TABLETS ONE ×2 (09:25→09:28)
[2024-09-07] MEDS ORDERED: PHENYTOIN NA EXTENDED 100 MG CAPSULE (FP) ONE (09:25)
[2024-09-07] MEDS: ASPIRIN 81 MG CHEWABLE TABLETS PO SCH (09:30)
[2024-09-07] MEDS: PHENYTOIN NA EXTENDED 100 MG CAPSULE (FP) PO SCH (09:30)
[2024-09-07] MEDS ORDERED: lamoTRIgine 25 MG TABLET ONE (09:34)
[2024-09-07] MEDS ORDERED: FAMOTIDINE 20 MG TABLET ONE (09:34)
[2024-09-07] MEDS ORDERED: ESCITALOPRAM OXALATE 10 MG TABLET ONE (09:34)
[2024-09-07] MEDS ORDERED: ENOXAPARIN NA (PORCINE) 40 MG/0.4 ML DISP.SYRIN SQ ONE (09:34)
[2024-09-07] MEDS ORDERED: FUROSEMIDE 40 MG TABLET (FP) ONE (09:34)
[2024-09-07] MEDS: lamoTRIgine 25 MG TABLET PO SCH (09:39)
[2024-09-07] MEDS: ESCITALOPRAM OXALATE 20 MG TABLET PO SCH (09:39)
[2024-09-07] MEDS: FAMOTIDINE 40 MG TABLET PO SCH (09:39)
[2024-09-07] MEDS: PANTOPRAZOLE 40 MG TABLET PO SCH (09:39)
[2024-09-07] MEDS: FUROSEMIDE 40 MG TABLET (FP) PO SCH (09:39)
[2024-09-07] MEDS: ENOXAPARIN NA (PORCINE) 40 MG/0.4 ML DISP.SYRIN SQ SCH (09:39)
[2024-09-07] MEDS ORDERED: THIAMINE 100 MG TABLET PO SCH (10:00)
[2024-09-07] MEDS ORDERED: THIAMINE HCL 200 MG/2 ML VIAL IVPB SCH (10:00)
[2024-09-07] MEDS ORDERED: FOLIC ACID 1 MG TABLET (FP) PO SCH ×2 (10:00)
[2024-09-07 10:19] VITALS: BP 120/74; PULSE 91; TEMP 98.2
[2024-09-07] MEDS: FLUTICASONE/UMECLIDIN/VILANTER(200-62.5-25 TRELEGY ELLIPTA) INAHLER IH SCH (10:20)
[2024-09-07] MEDS: LORazepam 1 MG TABLET PO SCH (12:24)
[2024-09-07] MEDS ORDERED: ATORVASTATIN CA 10 MG TABLET (FP) PO SCH (22:00)
[2024-09-07] MEDS ORDERED: QUEtiapine FUMARATE 25 MG TABLET PO SCH (22:00)
[2024-09-07] MEDS ORDERED: MONTELUKAST NA 10 MG TABLET PO SCH (22:00)
[2024-09-07] MEDS ORDERED: lamoTRIgine 100 MG TABLET PO SCH (22:00)
[2024-09-08] MEDS ORDERED: LORazepam 1 MG TABLET PO SCH (05:00)
[2024-09-08] MEDS ORDERED: THIAMINE 100 MG TABLET PO SCH (10:00)
[2024-09-08] MEDS ORDERED: FOLIC ACID 1 MG TABLET (FP) PO SCH (10:00)
[2024-09-09] MEDS ORDERED: LORazepam 0.5 MG TABLET PO PRN
[2024-09-09] MEDS ORDERED: LORazepam 0.5 MG TABLET PO SCH (05:00)
[2024-09-10] MEDS ORDERED: LORazepam 0.5 MG TABLET PO ONE (05:00)
== END 2024-09-07 12:22 | disposition left against medical advice (07) | DRG 101 ==
LOC: JER 22:34 → JERBED 09-07 00:52
PROVIDERS: ADMIT Internal Medicine; ATTEND Internal Medicine
DX: R56.9 Unspecified convulsions (principal); I50.30 Unspecified diastolic (congestive) heart failure; F10.939 Alcohol use, unspecified with withdrawal, unspecified; Z68.42 Body mass index [BMI] 45.0-49.9, adult; I11.0 Hypertensive heart disease with heart failure; E03.9 Hypothyroidism, unspecified; E11.9 Type 2 diabetes mellitus without complications; E78.5 Hyperlipidemia, unspecified; F41.8 Other specified anxiety disorders; G47.33 Obstructive sleep apnea (adult) (pediatric); J44.9 Chronic obstructive pulmonary disease, unspecified; J45.909 Unspecified asthma, uncomplicated; E66.01 Morbid (severe) obesity due to excess calories
CPT/HCPCS: 36415; 80048; 80053; 80175; 80186; 80307; 81003; 82803; 82962; 83605; 83735; 84100; 84484; 85025; 85027; 87086; 93005; 93010; 94660; 99285-25

== ENCOUNTER 2024-09-11 11:48 | Emergency (ER) | payer OTHER ==
[2024-09-11 11:57] VITALS: BMI 45.7
[2024-09-11] MEDS ORDERED: ALBUTEROL SO4 2.5/IPRATROPIUM 0.5 INH SOL 3 ML VIAL.NEB. NEB ONE ×2 (12:17→12:39)
[2024-09-11] MEDS ORDERED: MAGNESIUM SULFATE IN WATER 2 GM/50 ML IVPB IVPB ONE (12:25)
[2024-09-11] MEDS: ALBUTEROL SO4 2.5/IPRATROPIUM 0.5 INH SOL 3 ML VIAL.NEB. NEB ONE ×2 (12:43)
[2024-09-11] MEDS: MAGNESIUM SULF 50% (8.12 MEQ/2 ML-1 GM VIAL) IVPB ONE (12:43)
[2024-09-11 12:49] LABS: BASO % 1.3 % (0-2.0); EOS % 3.9 % (0-4.5); HEMATOCRIT 45.1 % (35.4-49); HEMOGLOBIN 15.9 GM/dL (11.7-16.9); LYMPH % 36.9 % (8-40); MCH 32.9 pg (25.7-33.7); MCHC 35.3 g/dl (32.0-35.9); MEAN CELL VOLUME 93.3 fl (80-96); MEAN PLT VOLUME 8.1 fl (7.5-11.1); MONO % 8.8 % (3.8-10.2); NEUT % 49.1 % (42.8-82.8); PLATELET COUNT 220 10^3/uL (134-434); RBC 4.84 M/mm3 (4.00-5.60); RDW 14.7 % (11.9-15.9)
[2024-09-11 12:51] LABS: VENOUS BASE EXCESS -4.5 mmol/L (-2-2); VENOUS PCO2 34.2 mmHg (38-52); VENOUS PH 7.377 (7.310-7.410)
[2024-09-11 12:57] LABS: INR 1.06 (0.83-1.09); PROTHROMBIN TIME (PATIENT) 12.2 SEC (9.7-13.0)
[2024-09-11] MEDS ORDERED: morphine SULFATE 4 MG/ML VIAL ONE (12:57)
[2024-09-11] MEDS ORDERED: FUROSEMIDE 40 MG/4 ML INJECTABLE VIAL ONE (12:58)
[2024-09-11] MEDS ORDERED: KETOROLAC TROMETHAMINE 15 MG/ML VIAL ONE (12:58)
[2024-09-11] MEDS: morphine CARPU-JECT 4 MG/1 ML DISP.SYRIN IVPB ONE (13:13)
[2024-09-11] MEDS: FUROSEMIDE 40 MG/4 ML INJECTABLE VIAL IVPUSH ONE (13:13)
[2024-09-11] MEDS: KETOROLAC TROMETHAMINE 15 MG/ML VIAL IVPUSH ONE (13:13)
[2024-09-11] MEDS: DEXAMETHASONE SOD PHOSPHATE 10 MG/1 ML VIAL IVPUSH ONE (13:14)
[2024-09-11] MEDS: methylPREDNISolone NA SUCC 125 MG/2 ML VIAL IVPUSH ONE (13:14)
[2024-09-11 13:16] LABS: POTASSIUM 3.9 mmol/L (3.5-5.1)
[2024-09-11 13:18] LABS: CALCIUM 8.3 mg/dL (8.5-10.1)
[2024-09-11 13:19] LABS: ALBUMIN 3.3 g/dl (3.4-5.0); BLOOD UREA NITROGEN 15.9 mg/dL (7-18)
[2024-09-11 13:22] LABS: CREATININE 1.1 mg/dL (0.55-1.3)
[2024-09-11 13:23] LABS: BILIRUBIN,TOTAL 0.4 mg/dL (0.2-1); TOT PROT 7.5 g/dl (6.4-8.2)
[2024-09-11 13:26] LABS: N-TERMINAL BNP 12.5 pg/ml (5-125)
[2024-09-11 17:21] VITALS: BP 159/93; PULSE 108; RESP 18; TEMP 99.1
== END 2024-09-11 17:27 | disposition left against medical advice (07) ==
LOC: JER 11:48
DX: J44.1 Chronic obstructive pulmonary disease with (acute) exacerbation (principal); Z20.822 Contact with and (suspected) exposure to COVID-19
CPT/HCPCS: 0241U-QW; 36415; 71045-TC-FY; 74177-TC; 80053; 82803; 83880; 84484; 85025; 85610; 85730; 93005; 93010; 99291; Q9967

== ENCOUNTER 2024-10-16 04:36 | Inpatient (IN) | payer OTHER ==
[2024-10-16] MEDS ORDERED: ALBUTEROL SO4 2.5/IPRATROPIUM 0.5 INH SOL 3 ML VIAL.NEB. NEB ONE ×2 (04:40→04:54)
[2024-10-16] MEDS: methylPREDNISolone NA SUCC 125 MG/2 ML VIAL IVPUSH ONE (04:45)
[2024-10-16] MEDS ORDERED: methylPREDNISolone NA SUCC 125 MG/2 ML VIAL ONE (04:47)
[2024-10-16] MEDS ORDERED: MAGNESIUM 1GM/D5W - 1 GM/100 ML IVPB IVPB ONE (04:47)
[2024-10-16] MEDS: MAGNESIUM 1GM/D5W - 1 GM/100 ML IVPB IVPB ONE (04:53)
[2024-10-16 04:56] VITALS: BMI 45.6
[2024-10-16] MEDS: ALBUTEROL SO4 2.5/IPRATROPIUM 0.5 INH SOL 3 ML VIAL.NEB. NEB ONE ×3 (05:03)
[2024-10-16 05:11] LABS: VENOUS BASE EXCESS -4.3 mmol/L (-2-2); VENOUS O2 SATURATION 92.2 % (70-80); VENOUS PH 7.361 (7.310-7.410)
[2024-10-16] MEDS ORDERED: ACETAMINOPHEN INJECTION 100 ML ONE (05:20)
[2024-10-16] MEDS: ACETAMINOPHEN 1000 MG/100 ML BAG IVPB ONE (05:23)
[2024-10-16 05:56] LABS: BASO % 0.7 % (0-2.0); EOS % 0.5 % (0-4.5); HEMATOCRIT 46.7 % (35.4-49); HEMOGLOBIN 15.6 GM/dL (11.7-16.9); LYMPH % 15.5 % (8-40); MCH 32.5 pg (25.7-33.7); MCHC 33.4 g/dl (32.0-35.9); MEAN CELL VOLUME 97.3 fl (80-96); MEAN PLT VOLUME 8.7 fl (7.5-11.1); MONO % 2.8 % (3.8-10.2); NEUT % 80.5 % (42.8-82.8); PLATELET COUNT 262 10^3/uL (134-434); RDW 15.3 % (11.9-15.9); WHITE BLOOD COUNT 8.3 K/mm3 (4.0-10.0)
[2024-10-16 06:07] LABS: POTASSIUM 4.3 mmol/L (3.5-5.1)
[2024-10-16 06:08] LABS: CALCIUM 8.8 mg/dL (8.5-10.1)
[2024-10-16 06:09] LABS: ALBUMIN 3.4 g/dl (3.4-5.0); BLOOD UREA NITROGEN 9.7 mg/dL (7-18)
[2024-10-16 06:14] LABS: BILIRUBIN,TOTAL 0.3 mg/dL (0.2-1); TOT PROT 7.8 g/dl (6.4-8.2)
[2024-10-16 06:17] LABS: N-TERMINAL BNP 77.6 pg/ml (5-125)
[2024-10-16 06:21] LABS: LACTIC ACID 5.5 mmol/L (0.4-2.0)
[2024-10-16 08:45] VITALS: RESP 20
[2024-10-16] MEDS ORDERED: LORazepam 2 MG/ML SDV VIAL ONE (09:11)
[2024-10-16] MEDS: SODIUM CHLORIDE 0.9% 500 ML INFUS.BAG IV ONE (09:18)
[2024-10-16 11:27] LABS: LACTIC ACID 3.8 mmol/L (0.4-2.0)
[2024-10-16] MEDS ORDERED: ESCITALOPRAM OXALATE 20 MG TABLET PO SCH (14:30)
[2024-10-16] MEDS ORDERED: PHENYTOIN NA EXTENDED 100 MG CAPSULE (FP) PO SCH (14:30)
[2024-10-16] MEDS ORDERED: ASPIRIN 81 MG CHEWABLE TABLETS PO SCH (14:30)
[2024-10-16] MEDS ORDERED: lamoTRIgine 25 MG TABLET PO SCH (14:45)
[2024-10-16] MEDS ORDERED: FUROSEMIDE 40 MG/4 ML INJECTABLE VIAL IVPUSH SCH (14:45)
[2024-10-16] MEDS ORDERED: methylPREDNISolone NA SUCC 40 MG/1 ML VIAL IVPUSH SCH (15:00)
[2024-10-16 15:34] VITALS: BP 142/82; PULSE 103; TEMP 98.1
[2024-10-16] MEDS ORDERED: ALBUTEROL SO4 2.5/IPRATROPIUM 0.5 INH SOL 3 ML VIAL.NEB. NEB SCH (16:00)
[2024-10-16] MEDS ORDERED: INSULIN ASPART SLIDING SCALE (NOVOLOG) 1 VIAL SQ SCH (16:30)
[2024-10-16] MEDS ORDERED: QUEtiapine FUMARATE 25 MG TABLET PO SCH (22:00)
[2024-10-16] MEDS ORDERED: MONTELUKAST NA 10 MG TABLET PO SCH (22:00)
[2024-10-16] MEDS ORDERED: HEPARIN NA (PORCINE) 5,000 UNITS/ML 1ML VIAL SQ SCH (22:00)
[2024-10-17] MEDS ORDERED: LEVOTHYROXINE NA 25 MCG TABLET (FP) PO SCH (07:00)
[2024-10-17] MEDS ORDERED: amLODIPine BESYLATE 5 MG TABLET (FP) PO SCH (10:00)
[2024-10-17] MEDS ORDERED: ATORVASTATIN CA 20 MG TABLET (FP) PO SCH (10:00)
[2024-10-17] MEDS ORDERED: FLUTICASONE PROP 0.05% 16 GM NASAL SPRAY NS SCH (10:00)
[2024-10-17] MEDS ORDERED: EMPAGLIFLOZIN (JARDIANCE) 10 MG TABLET PO SCH (10:00)
== END 2024-10-16 16:50 | disposition left against medical advice (07) | DRG 292 ==
LOC: JER 04:36 → JERBED 10:11 → OBSVTOIN 13:56 → JERBED 15:08
PROVIDERS: ADMIT Family Medicine; ATTEND Family Medicine
DX: I11.0 Hypertensive heart disease with heart failure (principal); J44.1 Chronic obstructive pulmonary disease with (acute) exacerbation; I50.9 Heart failure, unspecified; E03.9 Hypothyroidism, unspecified; J45.909 Unspecified asthma, uncomplicated; E11.9 Type 2 diabetes mellitus without complications; F41.0 Panic disorder [episodic paroxysmal anxiety]; E78.5 Hyperlipidemia, unspecified; R07.89 Other chest pain; F17.210 Nicotine dependence, cigarettes, uncomplicated
CPT/HCPCS: 36415; 71045-TC-FY; 80053; 82803; 83605; 83880; 84484; 85025; 93005; 93010; 93306-TC; 99285-25; G0378; J0131

== ENCOUNTER 2025-08-22 22:39 | Inpatient (IN) | payer MEDICARE, OTHER ==
[2025-08-22] MEDS ORDERED: MORPHINE SULFATE 2 MG/ML SYRINGE ONE (22:56)
[2025-08-22 23:05] LABS: MCHC 34.0 g/dl (32.3-36.5); MEAN CELL VOLUME 94.5 fl (79.0-92.2); MEAN PLT VOLUME 9.7 fl (9.4-12.4); RDW 13.2 % (12.2-16.1)
[2025-08-22 23:09] LABS: BG HCT 47.0 % (35.4-49); VENOUS BASE EXCESS -3.9 mmol/L (-2-2); VENOUS O2 SATURATION 95.9 % (70-80); VENOUS PCO2 35.9 mmHg (38-52); VENOUS PH 7.376 (7.310-7.410)
[2025-08-22 23:15] LABS: INR 1.11 (0.83-1.09); PROTHROMBIN TIME (PATIENT) 12.1 SEC (9.7-13.0)
[2025-08-22 23:17] LABS: ACTIVATED PTT 26.3 SECONDS (25.2-36.5)
[2025-08-22 23:21] LABS: GLUCOSE,RANDOM 199.0 mg/dL (74-106); TOT PROT 6.9 g/dl (6.4-8.2)
[2025-08-22 23:22] LABS: CO2 19.0 mmol/L (21-32)
[2025-08-22 23:24] LABS: ALK PHOS 133.0 U/L (40-150)
[2025-08-22 23:26] LABS: SGOT/AST 55.0 U/L (5-34); SGPT/ALT 42.0 U/L (0-55)
[2025-08-22 23:27] LABS: CREATININE 1.37 mg/dL (0.55-1.3); LACTIC ACID 4.6 mmol/L (0.4-2.0)
[2025-08-22] MEDS ORDERED: ACETAMINOPHEN INJECTION 100 ML ONE (23:35)
[2025-08-22] MEDS: morphine CARPU-JECT 2 MG/1 ML DISP.SYRIN IVPUSH ONE (23:43)
[2025-08-22] MEDS: ACETAMINOPHEN 1000 MG/100 ML BAG IVPB ONE (23:45)
[2025-08-22] MEDS: SODIUM CHLORIDE 0.9% 500 ML INFUS.BAG IV ONE (23:45)
[2025-08-23] MEDS: LACTATED RINGERS SOLUTION 1000 ML INFUS.BAG IV ONE (00:54)
[2025-08-23] MEDS ORDERED: KETOROLAC TROMETHAMINE 30 MG/1 ML VIAL ONE (00:55)
[2025-08-23] MEDS: KETOROLAC TROMETHAMINE 30 MG/1 ML VIAL IVPUSH ONE (01:32)
[2025-08-23 01:37] LABS: URINE APPEARANCE Clear; URINE BILIRUBIN Negative (NEGATIVE); URINE COLOR Yellow; URINE GLUCOSE (UA) Negative (NEGATIVE); URINE KETONE Negative (NEGATIVE); URINE LEUK ESTERASE Negative (NEGATIVE); URINE NITRITE Negative (NEGATIVE); URINE PROTEIN Negative (NEGATIVE); URINE UROBILINOGEN 0.2 mg/dL (0.2-1.0)
[2025-08-23 02:17] LABS: LACTIC ACID 3.9 mmol/L (0.4-2.0)
[2025-08-23] MEDS: SODIUM CHLORIDE 1,000 ML IV SCH (02:40)
[2025-08-23] MEDS: SODIUM CHLORIDE 1,000 ML IV STA (02:50)
[2025-08-23] MEDS ORDERED: ALBUTEROL SO4 0.083% IH SOL 2.5 MG/3 ML VIAL.NEB. NEB PRN (03:45)
[2025-08-23] MEDS ORDERED: morphine CARPU-JECT 2 MG/1 ML DISP.SYRIN IVPUSH ONE (04:30)
[2025-08-23 04:48] VITALS: BMI 45.1
[2025-08-23] MEDS: FOLIC ACID INJECTION - 1 MG, THIAMINE HCL 100 MG, MULTIVIT INJECTION ADULT 10 ML in SOD... IVPB ONE (05:00)
[2025-08-23] MEDS ORDERED: morphine CARPU-JECT 2 MG/1 ML DISP.SYRIN ONE (06:37)
[2025-08-23] MEDS: FUROSEMIDE 40 MG/4 ML INJECTABLE VIAL IVPUSH SCH (06:38)
[2025-08-23 06:45] LABS: ABSOLUTE IMMATURE GRANULOCYTES 0.05 x10^3/uL (0.0-0.031); BASOPHILS # 0.07 x10^3/uL (0.01-0.08); EOSINOPHIL % 1.5 % (0.8-7.0); EOSINOPHILS # 0.17 x10^3/uL (0.04-0.54); MCHC 33.0 g/dl (32.3-36.5); MEAN CELL VOLUME 96.0 fl (79.0-92.2); MEAN PLT VOLUME 9.7 fl (9.4-12.4); MONOCYTE # 0.83 x10^3/uL (0.30-0.82); MONOCYTE % 7.5 % (5.3-12.2); RDW 13.5 % (12.2-16.1)
[2025-08-23] MEDS: LEVOTHYROXINE NA 25 MCG TABLET (FP) PO SCH (06:58)
[2025-08-23] MEDS: morphine CARPU-JECT 2 MG/1 ML DISP.SYRIN IVPUSH ONE (06:58)
[2025-08-23 07:25] LABS: GLUCOSE,RANDOM 104.0 mg/dL (74-106)
[2025-08-23 07:27] LABS: CO2 21.0 mmol/L (21-32)
[2025-08-23 07:31] LABS: CREATININE 1.36 mg/dL (0.55-1.3); LDL CHOLESTEROL (ONLY SJRH) 62.0 mg/dL (5-100)
[2025-08-23] MEDS ORDERED: LORazepam 2 MG/ML SDV VIAL IVPUSH PRN (08:28)
[2025-08-23] MEDS: PANTOPRAZOLE 40 MG TABLET PO SCH (09:23)
[2025-08-23] MEDS: ESCITALOPRAM OXALATE 20 MG TABLET PO SCH (09:23)
[2025-08-23] MEDS: THIAMINE 100 MG TABLET PO SCH (09:23)
[2025-08-23] MEDS: FOLIC ACID 1 MG TABLET (FP) PO SCH (09:23)
[2025-08-23] MEDS: amLODIPine BESYLATE 5 MG TABLET (FP) PO SCH (09:23)
[2025-08-23] MEDS: NICOTINE 21 MG/24 HOURS TOPICAL PATCH TD SCH (09:24)
[2025-08-23] MEDS: FLUTICASONE/UMECLIDIN/VILANTER(200-62.5-25 TRELEGY ELLIPTA) INAHLER IH SCH (09:24)
[2025-08-23] MEDS: PHENYTOIN NA EXTENDED 100 MG CAPSULE (FP) PO SCH (09:25)
[2025-08-23] MEDS ORDERED: CARIPRAZINE HCL 4.5 MG PO SCH (10:00)
[2025-08-23] MEDS: LAMOTRIGINE 100 MG, LAMOTRIGINE 50 MG PO SCH (11:17)
[2025-08-23] MEDS: INSULIN ASPART SLIDING SCALE (NOVOLOG) 1 VIAL SQ SCH (11:24)
[2025-08-23] MEDS: morphine CARPU-JECT 2 MG/1 ML DISP.SYRIN IVPUSH PRN (13:08)
[2025-08-23] MEDS: VANCOMYCIN/WATER 1250 MG 1,250 MG/250 ML BAG IVPB ONE (14:04)
[2025-08-23] MEDS: CEPHALEXIN MONOHYDRATE 500 MG CAPSULE (UD) PO SCH (17:01)
[2025-08-24 06:57] LABS: MCHC 32.6 g/dl (32.3-36.5); MEAN CELL VOLUME 96.6 fl (79.0-92.2); MEAN PLT VOLUME 9.8 fl (9.4-12.4); RDW 13.4 % (12.2-16.1)
[2025-08-24 07:16] LABS: GLUCOSE,RANDOM 119.0 mg/dL (74-106)
[2025-08-24 07:17] LABS: TOT PROT 7.2 g/dl (6.4-8.2)
[2025-08-24 07:18] LABS: CO2 24.0 mmol/L (21-32)
[2025-08-24 07:19] LABS: ALK PHOS 142.0 U/L (40-150)
[2025-08-24 07:22] LABS: CREATININE 1.11 mg/dL (0.55-1.3); SGOT/AST 52.0 U/L (5-34); SGPT/ALT 42.0 U/L (0-55)
[2025-08-24] MEDS: IBUPROFEN 600 MG TABLET (FP) PO PRN (09:15)
[2025-08-24] MEDS: TAMSULOSIN HCL 0.4 MG CAP PO SCH (09:16)
[2025-08-24] MEDS ORDERED: LIDOCAINE HCL 1%, 10 MG/ML (20ML VIAL) ONE (09:28)
[2025-08-24] MEDS: LIDOCAINE HCL 1%, 10 MG/ML (20ML VIAL) SQ ONE (10:42)
[2025-08-25 09:38] VITALS: RESP 18
[2025-08-25] MEDS: FUROSEMIDE 40 MG TABLET (FP) PO ONE (10:30)
[2025-08-25 18:38] VITALS: BP 144/87; PULSE 67; TEMP 98.5
== END 2025-08-25 18:00 | disposition home health service (06) | DRG 603 ==
LOC: SUATTDRO 22:39 → JER 22:39 → JERBED 08-23 00:32 → J2W 08-23 03:59 → OBSVTOIN 08-23 10:26
PROVIDERS: ADMIT Family Medicine; ATTEND Family Medicine
PROC: 0X9 Anatomical Regions, Upper Extremities, Drainage (ICD-10-PCS; principal; 2025-08-24)
DX: L08.9 Local infection of the skin and subcutaneous tissue, unspecified (principal); I50.32 Chronic diastolic (congestive) heart failure; Z68.42 Body mass index [BMI] 45.0-49.9, adult; J96.10 Chronic respiratory failure, unspecified whether with hypoxia or hypercapnia; E87.20 Acidosis, unspecified; R07.89 Other chest pain; J45.909 Unspecified asthma, uncomplicated; G47.33 Obstructive sleep apnea (adult) (pediatric); E78.5 Hyperlipidemia, unspecified; E03.9 Hypothyroidism, unspecified; E11.9 Type 2 diabetes mellitus without complications; F43.10 Post-traumatic stress disorder, unspecified; F32.A Depression, unspecified; F10.129 Alcohol abuse with intoxication, unspecified; J44.9 Chronic obstructive pulmonary disease, unspecified; R33.9 Retention of urine, unspecified; E66.01 Morbid (severe) obesity due to excess calories; F17.200 Nicotine dependence, unspecified, uncomplicated; G40.909 Epilepsy, unspecified, not intractable, without status epilepticus; I11.0 Hypertensive heart disease with heart failure
CPT/HCPCS: 36415; 71045-TC-FY; 71275-TC; 74174-TC; 80048; 80053; 80061; 80307; 81003; 82010; 82803; 82962; 83036; 83605; 83690; 83735; 84443; 84484; 85025; 85027; 85610; 85730; 86850; 86900; 86901; 87040; 87070; 87086; 87205; 87637-QW; 93005; 93010; 94660; 99285-25; G0378; Q9967